=== PATIENT | male | born 1995 | race Caucasian/White ===

== ENCOUNTER 2017-02-17 08:52 | Emergency (ER) | payer OTHER ==
[~2017-02-17] VITALS: Ht 172.7 cm; Wt 73.4 kg
[~2017-02-17 08:52] MED LIST: ARIP400P IM; ASAC800T PO; CARA1SUS3 PO; PANT40TA3 PO
[2017-02-17 08:56] VITALS: BP 155/84; PULSE 64; RESP 18; TEMP 97.3; O2SAT 100
[2017-02-17] MEDS ORDERED: ASAC800T PO (10:11)
[2017-02-17] MEDS ORDERED: BACT800T5 PO (10:11)
--- NOTE | 2017-02-17 10:18 | PD ---
HPI Chief Complaint: Abdominal Pain Time Seen by Provider: 09:30 Travel History International Travel<30 days: No Contact w/Intl Traveler<30days: No Traveled to known affect area: No History of Present Illness HPI This patient complains of some bloating and burning in his abdomen. He has history of Crohn's disease. He doesn't follow up with anybody and doesn't take any medications except when his ER refills run out. He is out of medication now. Denies fever or bloody diarrhea. Severity is mild PFSH Past Medical History ADD: Yes ADHD: Yes Asthma: No Bipolar Disorder: Yes Anxiety: No Depression: No Cancer: No Cardiovascular Problems: No COPD: No Cerebrovascular Accident: No Diabetes: No Diminished Hearing: No Endocrine: No Gastrointestinal Disorders: Yes (crohns) GERD: No Genitourinary: No Hiatal Hernia: No Implanted Vascular Access Dvce: No Musculoskeletal: No Neurologic: Yes Psychiatric: Yes (bipolar, ADD, ADHD) Reproductive: No Respiratory: No Immunizations Current: Yes Migraines: Yes Seizures: No Sleep Apnea: No Thyroid Disease: No Ulcer: No Influenza Vaccination: Yes PNEUMOCCOCAL Vaccine (Year): 3 ?: Not Past Surgical History Abdominal Surgery: No AICD: No Arteriovenous Shunt: No Cardiac Surgery: No Ear Surgery: Yes (tubes placed in ears at 4years old ) Endocrine Surgery: No Eye Surgery: No Genitourinary Surgery: No Gynecologic Surgery: No Insulin Pump: No Joint Replacement: No Neurologic Surgery: No Oral Surgery: No Pacemaker: No Thoracic Surgery: No Tympanostomy Tube: Yes Other Surgery: Yes (TUBES IN EARS) Social History Alcohol Use: No (Denies) Tobacco Use: Yes (1PPD) Substance Use: Yes Allergies-Medications (Allergen,Severity, Reaction): Coded Allergies: acetaminophen (Unverified Allergy, Intermediate, Rash, 02/17/17) oxycodone (Unverified Allergy, Intermediate, Rash, 02/17/17) Reported Meds & Prescriptions Reported Meds & Active Scripts Active Bactrim DS (Sulfamethoxazole-Trimethoprim) 800-160 Mg Tab 1 Tab PO BID Asacol HD (Mesalamine) 800 Mg Tab 1,600 Mg PO TID Swallow whole. Take on an empty stomach. Review of Systems HENT: No: Headaches Cardiovascular: No: Chest Pain or Discomfort Respiratory: No: Cough Gastrointestinal: No: Vomiting Physical Exam Narrative GASTROINTESTINAL: Abdomen soft, non-tender, nondistended. Positive bowel sounds. No hepato-splenomegaly, or palpable masses. No guarding. SKIN: Focused skin assessment reveals no rash or ulcers. Skin is warm and dry. Palpation shows no induration or nodules. NECK: Symmetrical appearance, midline trachea. No mass or crepitus. Thyroid without enlargement, tenderness, or mass. Data Data Last Documented VS Vital Signs Date Time Temp Pulse Resp B/P (MAP) Pulse Ox O2 Delivery O2 Flow Rate FiO2 02/17/17 08:56 97.3 64 18 155/84 (107) 100 MDM Medical Decision Making Medical Screen Exam Complete: Yes Emergency Medical Condition: Yes Medical Record Reviewed: Yes Differential Diagnosis Colitis flare, gastroenteritis, ileus Narrative Course I have reviewed the patient's electronic medical record. Reviewed his most recent GI consultation They recommended mesalamine 16 mg 3 times a day and I have refilled that and gave him 1 refill That should give him 2 months of time to try for follow-up He belatedly notes a reddened area on his thumb that looks inflamed but not serious. I recommended warm compresses and wrote him some Bactrim DS Diagnosis Primary Impression: Colitis Additional Impression: Infected skin lesion Additional Instructions: The patient was advised to follow up with their physician and return if they worsen. Med/Other Pt SpecificInfo: Prescription(s) given Scripts Sulfamethoxazole-Trimethoprim (Bactrim DS) 800-160 Mg Tab 1 TAB PO BID for Infection, #14 TAB 0 Refills Prov: Josemanuel Jones MD 02/17/[address] (Asacol HD) 800 Mg Tab 1600 MG PO TID for Ulcerative colitis, #90 TAB 0 Refills Swallow whole. Take on an empty stomach. Prov: Josemanuel Jones MD 02/17/17 Disposition: 01 DISCHARGE HOME Condition: Stable Josemanuel Jones MD Feb 17, 2017 10:18
== END 2017-02-17 10:22 | disposition home or self-care (01) ==
LOC: PHED 08:52
DX: K52.9 Noninfective gastroenteritis and colitis, unspecified (principal); L08.9 Local infection of the skin and subcutaneous tissue, unspecified; F17.200 Nicotine dependence, unspecified, uncomplicated; Z86.59 Personal history of other mental and behavioral disorders; Z87.19 Personal history of other diseases of the digestive system; Z86.69 Personal history of other diseases of the nervous system and sense organs
CPT/HCPCS: 99283

== ENCOUNTER 2017-07-17 15:49 | Emergency (ER) | payer OTHER ==
[~2017-07-17] VITALS: Ht 172.7 cm; Wt 70.0 kg
[~2017-07-17 15:49] MED LIST changes: +BACT800T5 PO; -CARA1SUS3 PO; -PANT40TA3 PO
[2017-07-17 15:57] VITALS: BP 162/92; PULSE 100; RESP 18; TEMP 97.7; O2SAT 98
[2017-07-17] MEDS ORDERED: SODIUM CHLOR 0.9% 1000 ML INJ 1,000 ML IV SCH (16:36)
[2017-07-17] MEDS ORDERED: SODIUM CHLORIDE 0.9% FLUSH 10 ML FLUSH IV FLUSH PRN (16:45)
[2017-07-17] MEDS ORDERED: IOHEXOL 350 MG/ML 10 ML VIAL (for RAD DIAG) IVCONTRAST ONE (16:55)
--- NOTE | 2017-07-17 16:58 | PD ---
HPI Chief Complaint: GI Complaint Time Seen by Provider: 16:10 Travel History International Travel<30 days: No Contact w/Intl Traveler<30days: No Traveled to known affect area: No History of Present Illness HPI Patient is a 21-year-old male presents the emergency room complaints of lower abdominal pain with diarrhea. Patient reports that he has history of Crohn's disease, reports that for the past few days, he has been having increased lower abdominal pain. Patient reports concerns for possible Crohn's flareup. Patient also endorses that he has noticed bright red blood in his stools. Patient reports that he has had history of Crohn's disease for a while, he was seen in the emergency room a few months ago and was told that he would need to follow-up with a professor of art history, reports that he has not followed up with a professor of art history yet although he knows that this is a priority. Overall, patient denies any fever or chills, denies any nausea or vomiting, reports generalized weakness. Patient also requesting refill on his Asacol 1600mg which he takes TID as he has run out of his medication and does not have an appointment with GI yet. PFSH Past Medical History ADD: Yes ADHD: Yes Asthma: No Bipolar Disorder: Yes Anxiety: No Depression: No Cancer: No Cardiovascular Problems: No COPD: No Cerebrovascular Accident: No Diabetes: No Diminished Hearing: No Endocrine: No Gastrointestinal Disorders: Yes (crohns) GERD: No Genitourinary: No Hiatal Hernia: No Implanted Vascular Access Dvce: No Musculoskeletal: No Neurologic: Yes Psychiatric: Yes (bipolar, ADD, ADHD) Reproductive: No Respiratory: No Immunizations Current: Yes Migraines: Yes Seizures: No Sleep Apnea: No Thyroid Disease: No Ulcer: No Influenza Vaccination: Yes PNEUMOCCOCAL Vaccine (Year): 3 Past Surgical History Abdominal Surgery: No AICD: No Arteriovenous Shunt: No Cardiac Surgery: No Ear Surgery: Yes (tubes placed in ears at 4years old ) Endocrine Surgery: No Eye Surgery: No Genitourinary Surgery: No Gynecologic Surgery: No Insulin Pump: No Joint Replacement: No Neurologic Surgery: No Oral Surgery: No Pacemaker: No Thoracic Surgery: No Tympanostomy Tube: Yes Other Surgery: Yes (TUBES IN EARS) Social History Alcohol Use: No (Denies) Tobacco Use: Yes (1PPD) Substance Use: Yes Allergies-Medications (Allergen,Severity, Reaction): Coded Allergies: acetaminophen (Unverified Allergy, Intermediate, Rash, 07/17/17) oxycodone (Unverified Allergy, Intermediate, Rash, 07/17/17) Reported Meds & Prescriptions Reported Meds & Active Scripts Active Asacol HD (Mesalamine) 800 Mg Tab 1,600 Mg PO TID Swallow whole. Take on an empty stomach. Review of Systems General / Constitutional: No: Fever Eyes: No: Visual changes HENT: No: Headaches Cardiovascular: No: Chest Pain or Discomfort Respiratory: No: Shortness of Breath Gastrointestinal: Positive: Diarrhea, Abdominal Pain, Hematochezia, No: Nausea , Vomiting Genitourinary: No: Dysuria Musculoskeletal: No: Pain Skin: No Rash Neurologic: No: Weakness Psychiatric: No: Depression Endocrine: No: Polydipsia Hematologic/Lymphatic: No: Easy Bruising Physical Exam Narrative GENERAL: Moderate distress SKIN: Focused skin assessment warm/dry. HEAD: Atraumatic. Normocephalic. EYES: Pupils equal and round. No scleral icterus. No injection or drainage. ENT: No nasal bleeding or discharge. Mucous membranes pink and moist. NECK: Trachea midline. No JVD. CARDIOVASCULAR: Regular rate and rhythm. No murmur appreciated. RESPIRATORY: No accessory muscle use. Clear to auscultation. Breath sounds equal bilaterally. GASTROINTESTINAL: Abdomen soft, increased tenderness to the lower abdomen with no rebound or guarding on exam, nondistended. Hepatic and splenic margins not palpable. Positive bowel sounds MUSCULOSKELETAL: No obvious deformities. No clubbing. No cyanosis. No edema. NEUROLOGICAL: Awake and alert. No obvious cranial nerve deficits. Motor grossly within normal limits. Normal speech. PSYCHIATRIC: Appropriate mood and affect; insight and judgment normal. Data Data Last Documented VS Vital Signs Date Time Temp Pulse Resp B/P (MAP) Pulse Ox O2 Delivery O2 Flow Rate FiO2 07/17/17 15:57 97.7 100 18 162/92 (115) 98 Orders Orders Complete Blood Count With Diff (07/17/17 16:36) Comprehensive Metabolic Panel (07/17/17 16:36) Prothrombin Time / Inr (Pt) (07/17/17 16:36) Act Partial Throm Time (Ptt) (07/17/17 16:36) Urinalysis - C+S If Indicated (07/17/17 16:36) Ct Abd/Pel W Iv Contrast(Rout) (07/17/17 16:36) Iv Access Insert/Monitor (07/17/17 16:36) Oximetry (07/17/17 16:36) NPO (07/17/17 16:36) Sodium Chlor 0.9% 1000 Ml Inj (Ns 1000 M (07/17/17 16:36) Sodium Chloride 0.9% Flush (Ns Flush) (07/17/17 16:45) Iohexol 350 Inj (Omnipaque 350 Inj) (07/17/17 16:55) Potassium Chloride (Kcl) (07/17/17 17:45) Labs Laboratory Tests Test 07/17/17 16:10 White Blood Count 16.4 TH/MM3 Red Blood Count 4.52 MIL/MM3 Hemoglobin 13.0 GM/DL Hematocrit 38.6 % Mean Corpuscular Volume 85.5 FL Mean Corpuscular Hemoglobin 28.8 PG Mean Corpuscular Hemoglobin Concent 33.6 % Red Cell Distribution Width 12.1 % Platelet Count 370 TH/MM3 Mean Platelet Volume 8.4 FL Neutrophils (%) (Auto) 83.8 % Lymphocytes (%) (Auto) 7.6 % Monocytes (%) (Auto) 4.2 % Eosinophils (%) (Auto) 3.9 % Basophils (%) (Auto) 0.5 % Neutrophils # (Auto) 13.8 TH/MM3 Lymphocytes # (Auto) 1.2 TH/MM3 Monocytes # (Auto) 0.7 TH/MM3 Eosinophils # (Auto) 0.6 TH/MM3 Basophils # (Auto) 0.1 TH/MM3 CBC Comment DIFF FINAL Differential Comment Prothrombin Time 10.3 SEC Prothromb Time International Ratio 1.0 RATIO Activated Partial Thromboplast Time 28.3 SEC Urine Color YELLOW Urine Turbidity CLEAR Urine pH 6.0 Urine Specific [place] LESS/EQUAL 1.005 Urine Protein NEG mg/dL Urine Glucose (UA) NEG mg/dL Urine Ketones NEG mg/dL Urine Occult Blood TRACE Urine Nitrite NEG Urine Bilirubin NEG Urine Urobilinogen 0.2 MG/DL Urine Leukocyte Esterase NEG Urine WBC 0-2 /hpf Urine Squamous Epithelial Cells 0-5 /hpf Microscopic Urinalysis Comment CULT NOT INDICATED Blood Urea Nitrogen 4 MG/DL Creatinine 0.63 MG/DL Random Glucose 121 MG/DL Total Protein 7.3 GM/DL Albumin 3.2 GM/DL Calcium Level 9.0 MG/DL Alkaline Phosphatase 75 U/L Aspartate Amino Transf (AST/SGOT) 11 U/L Alanine Aminotransferase (ALT/SGPT) 13 U/L Total Bilirubin 0.4 MG/DL Sodium Level 135 MEQ/L Potassium Level 3.2 MEQ/L Chloride Level 102 MEQ/L Carbon Dioxide Level 24.9 MEQ/L Anion Gap 8 MEQ/L Estimat Glomerular Filtration Rate 164 ML/MIN MDM Medical Decision Making Medical Screen Exam Complete: Yes Emergency Medical Condition: Yes Medical Record Reviewed: Yes Interpretation(s) Vital Signs Date Time Temp Pulse Resp B/P (MAP) Pulse Ox O2 Delivery O2 Flow Rate FiO2 07/17/17 15:57 97.7 100 18 162/92 (115) 98 Differential Diagnosis Crohn's exacerbation, electrolyte abnormality, colitis Narrative Course 21-year-old male with history of Crohn's disease, presents to emergency room with complaints of Crohn's exacerbation. During the course of the patients emergency department visit, the patients history, examination, and differential diagnosis were reviewed with the patient. The patient was placed on a cafeteria monitor with oximetry and frequent blood pressure monitoring. The patient had an IV access obtained and blood work sent for analysis. The patient was initially provided IV fluids. The patients laboratory studies were reviewed and remarkable for: Laboratory Tests Test 07/17/17 16:10 White Blood Count 16.4 TH/MM3 (4.0-11.0) Red Blood Count 4.52 MIL/MM3 (4.50-5.90) Hemoglobin 13.0 GM/DL (13.0-17.0) Hematocrit 38.6 % (39.0-51.0) Mean Corpuscular Volume 85.5 FL (80.0-100.0) Mean Corpuscular Hemoglobin 28.8 PG (27.0-34.0) Mean Corpuscular Hemoglobin Concent 33.6 % (32.0-36.0) Red Cell Distribution Width 12.1 % (11.6-17.2) Platelet Count 370 TH/MM3 (150-450) Mean Platelet Volume 8.4 FL (7.0-11.0) Neutrophils (%) (Auto) 83.8 % (16.0-70.0) Lymphocytes (%) (Auto) 7.6 % (9.0-44.0) Monocytes (%) (Auto) 4.2 % (0.0-8.0) Eosinophils (%) (Auto) 3.9 % (0.0-4.0) Basophils (%) (Auto) 0.5 % (0.0-2.0) Neutrophils # (Auto) 13.8 TH/MM3 (1.8-7.7) Lymphocytes # (Auto) 1.2 TH/MM3 (1.0-4.8) Monocytes # (Auto) 0.7 TH/MM3 (0-0.9) Eosinophils # (Auto) 0.6 TH/MM3 (0-0.4) Basophils # (Auto) 0.1 TH/MM3 (0-0.2) CBC Comment DIFF FINAL Differential Comment Prothrombin Time 10.3 SEC (9.8-11.6) Prothromb Time International Ratio 1.0 RATIO Activated Partial Thromboplast Time 28.3 SEC (24.3-30.1) Urine Color YELLOW (YELLW/STRAW) Urine Turbidity CLEAR (CLEAR) Urine pH 6.0 (5.0-8.5) Urine Specific [place] LESS/EQUAL 1.005 Urine Protein NEG mg/dL (NEG-TRACE) Urine Glucose (UA) NEG mg/dL (NEG) Urine Ketones NEG mg/dL (NEG) Urine Occult Blood TRACE (NEG) Urine Nitrite NEG (NEG) Urine Bilirubin NEG (NEG) Urine Urobilinogen 0.2 MG/DL (LESS THAN Urine Leukocyte Esterase NEG (NEG) Urine WBC 0-2 /hpf (0-5) Urine Squamous Epithelial Cells 0-5 /hpf (0-5) Microscopic Urinalysis Comment CULT NOT INDICATED Blood Urea Nitrogen 4 MG/DL (7-18) Creatinine 0.63 MG/DL (0.60-1.30) Random Glucose 121 MG/DL (74-106) Total Protein 7.3 GM/DL (6.4-8.2) Albumin 3.2 GM/DL (3.4-5.0) Calcium Level 9.0 MG/DL (8.5-10.1) Aspartate Amino Transf (AST/SGOT) 11 U/L (15-39) Alanine Aminotransferase (ALT/SGPT) 13 U/L (9-52) Total Bilirubin 0.4 MG/DL (0.2-1.0) Sodium Level 135 MEQ/L (136-145) Potassium Level 3.2 MEQ/L (3.5-5.1) Chloride Level 102 MEQ/L (98-107) Carbon Dioxide Level 24.9 MEQ/L (21.0-32.0) Anion Gap 8 MEQ/L (5-15) Estimat Glomerular Filtration Rate 164 ML/MIN (>89) Radiology studies were reviewed and remarkable for: Last Impressions Abdomen/Pelvis CT 07/17/17 1636 Signed Impressions: Service Date/Time: Monday, July 17, 2017 16:48 - CONCLUSION: 1. No acute findings. 2. A few subcentimeter nonspecific retroperitoneal and mesenteric lymph nodes unchanged from prior. Luis F Srinivasan MD Patient reevaluated, patient feeling much better at this time. Reviewed CT results with patient including all incidental findings. Patient with most likely Crohn's exacerbation, will restart him on Asacol and will have him follow up with a professor of art history. Signs and symptoms of when to return to the ER was reviewed with patient in detail. Diagnosis Primary Impression: Crohns disease Qualified Codes: K50.919 - Crohn's disease, unspecified, with unspecified complications Referrals: Rigoberto Toussaint MD Patient Instructions: General Instructions Additional Instructions: Please provide patient with a copy of their lab work and studies at discharge* * Please follow up with your primary care doctor in 2-3 days Return to the ER if symptoms worsen or progress Return to the ER as needed Please follow-up with your professor of art history as soon as possible Med/Other Pt SpecificInfo: Prescription(s) given Scripts Omaralamine (Asacol HD) 800 Mg Tab 1600 MG PO TID for Ulcerative colitis, #90 TAB 0 Refills Swallow whole. Take on an empty stomach. Prov: Tricia Campos DO 07/17/17 Disposition: 01 DISCHARGE HOME Condition: Stable Tricia Campos DO Jul 17, 2017 16:58
[2017-07-17 17:15] LABS: AUTOMATED NEUTROPHIL # 13.8 TH/MM3 (1.8-7.7); BASOPHIL # 0.1 TH/MM3 (0-0.2); BASOPHIL % 0.5 % (0.0-2.0); BILIRUBIN, URINE NEG (NEG); BLOOD, URINE TRACE (NEG); EOSINOPHIL # 0.6 TH/MM3 (0-0.4); EOSINOPHIL % 3.9 % (0.0-4.0); GLUCOSE,URINE NEG (NEG); HEMATOCRIT 38.6 % (39.0-51.0); KETONE, URINE NEG (NEG); LYMPH % 7.6 % (9.0-44.0); LYMPHOCYTE # 1.2 TH/MM3 (1.0-4.8); MEAN CELL VOLUME 85.5 FL (80.0-100.0); MEAN CORPUSCULAR HEMOGLOBIN 28.8 PG (27.0-34.0); MEAN CORPUSCULAR HGB CONC 33.6 % (32.0-36.0); MEAN PLATELET VOLUME 8.4 FL (7.0-11.0); MONO % 4.2 % (0.0-8.0); MONOCYTE # 0.7 TH/MM3 (0-0.9); NEUT % 83.8 % (16.0-70.0); NITRITE,URINE NEG (NEG); PLATELET COUNT 370 TH/MM3 (150-450); RED BLOOD COUNT 4.52 MIL/MM3 (4.50-5.90); RED CELL DISTRIBUTION WIDTH 12.1 % (11.6-17.2); URINE COLOR YELLOW (YELLW/STRAW); URINE LEUKOCYTE ESTERASE NEG (NEG); WHITE BLOOD COUNT 16.4 TH/MM3 (4.0-11.0)
[2017-07-17 17:25] LABS: CHLORIDE 102 MEQ/L (98-107); SODIUM (NA) 135 MEQ/L (136-145)
--- NOTE | 2017-07-17 17:27 | RADRPT ---
EXAM DATE/TIME: 07/17/2017 16:48 [facility] COMPARISON: CT ABDOMEN & PELVIS W CONTRAST, November 01, 2016, 16:21. INDICATIONS : Lower abdominal pain with nausea, vomiting, and diarrhea. IV CONTRAST: 100 cc Omnipaque 350 (iohexol) IV ORAL CONTRAST: No oral contrast ingested. RADIATION DOSE: 6.75 CTDIvol (mGy) MEDICAL HISTORY : Crohn's disease. SURGICAL HISTORY : None. ENCOUNTER: Initial ACUITY: 2 weeks PAIN SCALE: 7/10 LOCATION: Bilateral lower quadrant abdomen TECHNIQUE: Volumetric scanning of the abdomen and pelvis was performed. Using automated exposure control and ad justment of the mA and/or kV according to patient size, radiation dose was kept as low as reasonably achievable to obtain optimal diagnostic quality images. DICOM format image data is available electro nically for review and comparison. FINDINGS: LOWER LUNGS: The visualized lower lungs are clear. LIVER: Homogeneous density without lesion. There is no dilation of the biliary tree. No calcified gall[place] es. SPLEEN: Normal size without lesion. PANCREAS: Within normal limits. KIDNEYS: Normal in size and shape. There is no mass, stone or hydronephrosis. ADRENAL GLANDS: Within normal limits. VASCULAR: There is no aortic aneurysm. BOWEL/MESENTERY: The stomach, small bowel, and colon demonstrate no acute abnormality. Small and large bowel is nondi stended. There is a uniform appearance of the colonic wall throughout without definite areas of wall thickening or pericolonic induration. There is no free intraperitoneal air or fluid. ABDOMINAL WALL: Within normal limits. RETROPERITONEUM: No acute findings. There is mild prominence of several periaortic lymph nodes, a few mesenteric lymp h nodes, all measuring 8 mm or less, unchanged in appearance when compared to prior CT in October 2016. BLADDER: No wall thickening or mass. REPRODUCTIVE: Within normal limits. INGUINAL: There is no lymphadenopathy or hernia. MUSCULOSKELETAL: Within normal limits for patient age. Considerable note of partial sacralization of L5 bilaterally. CONCLUSION: 1. No acute findings. 2. A few subcentimeter nonspecific retroperitoneal and mesenteric lymph nodes unchanged from prior. Luis F Srinivasan MD on July 17, 2017 at 17:17 Board Certified Radiologist. This report was verified electronically.
[2017-07-17 17:28] LABS: ALBUMIN 3.2 GM/DL (3.4-5.0); BICARBONATE 24.9 MEQ/L (21.0-32.0); BLOOD UREA NITROGEN 4 MG/DL (7-18); GLUCOSE,RANDOM 121 MG/DL (74-106)
[2017-07-17 17:30] LABS: PROTHROMBIN TIME - PATIENT 10.3 SEC (9.8-11.6)
[2017-07-17 17:31] LABS: ALT (GPT) 13 U/L (9-52); AST (GOT) 11 U/L (15-39); SQUAMOUS EPITHELIAL CELL URINE 0-5 /hpf (0-5); WBC, URINE 0-2 /hpf (0-5)
[2017-07-17 17:32] LABS: CREATININE 0.63 MG/DL (0.60-1.30); GLOMERULAR FILTRATION RATE 164 ML/MIN (>89)
[2017-07-17 17:33] LABS: TOTAL BILIRUBIN ADULT 0.4 MG/DL (0.2-1.0); TOTAL PROTEIN 7.3 GM/DL (6.4-8.2)
[2017-07-17 17:34] LABS: ALKALINE PHOSPHATASE 75 U/L (45-117)
[2017-07-17] MEDS ORDERED: ASAC800T PO (17:35)
[2017-07-17] MEDS ORDERED: POTASSIUM CHLORIDE 10 MEQ CONTROLLED RELEASE TAB PO ONE (17:45)
== END 2017-07-17 18:24 | disposition home or self-care (01) ==
LOC: PHED 15:49
DX: K50.90 Crohn's disease, unspecified, without complications (principal); F90.9 Attention-deficit hyperactivity disorder, unspecified type; F31.9 Bipolar disorder, unspecified; Z88.6 Allergy status to analgesic agent; Z88.5 Allergy status to narcotic agent
CPT/HCPCS: 74177; 80053; 81001; 85025; 85610; 85730; 96360; 99284; J7030; Q9967

== ENCOUNTER 2017-08-09 14:08 | Observation (INO) | payer OTHER ==
[~2017-08-09] VITALS: Ht 172.7 cm; Wt 60.0 kg
[~2017-08-09 14:08] MED LIST changes: -BACT800T5 PO
[2017-08-09 14:11] VITALS: BP 127/89; PULSE 110; RESP 20; TEMP 97.2; O2SAT 100
[2017-08-09] MEDS ORDERED: SODIUM CHLOR 0.9% 1000 ML INJ 1,000 ML IV SCH ×2 (14:37→18:06)
[2017-08-09] MEDS ORDERED: MORPHINE SULFATE 4 MG/ML INJ IV PUSH ONE ×2 (14:45→16:15)
[2017-08-09] MEDS ORDERED: SODIUM CHLORIDE 0.9% FLUSH 10 ML FLUSH IV FLUSH PRN ×2 (14:45→17:45)
[2017-08-09] MEDS ORDERED: ONDANSETRON HCL 4 MG/2 ML VIAL IVP ONE (14:45)
[2017-08-09] MEDS ORDERED: PRED10 PO (15:06)
[2017-08-09 15:23] LABS: AUTOMATED NEUTROPHIL # 11.4 TH/MM3 (1.8-7.7); BASOPHIL # 0.2 TH/MM3 (0-0.2); EOSINOPHIL # 0.3 TH/MM3 (0-0.4); EOSINOPHIL % 1.7 % (0.0-4.0); HEMATOCRIT 45.7 % (39.0-51.0); HEMOGLOBIN 15.9 GM/DL (13.0-17.0); LYMPH % 9.8 % (9.0-44.0); LYMPHOCYTE # 1.5 TH/MM3 (1.0-4.8); MEAN CELL VOLUME 81.8 FL (80.0-100.0); MEAN CORPUSCULAR HEMOGLOBIN 28.4 PG (27.0-34.0); MEAN CORPUSCULAR HGB CONC 34.7 % (32.0-36.0); MEAN PLATELET VOLUME 7.6 FL (7.0-11.0); MONO % 13.3 % (0.0-8.0); MONOCYTE # 2.1 TH/MM3 (0-0.9); NEUT % 74.2 % (16.0-70.0); PLATELET COUNT 582 TH/MM3 (150-450); RED BLOOD COUNT 5.58 MIL/MM3 (4.50-5.90); WHITE BLOOD COUNT 15.5 TH/MM3 (4.0-11.0)
[2017-08-09 15:31] LABS: CHLORIDE 96 MEQ/L (98-107); SODIUM (NA) 130 MEQ/L (136-145)
[2017-08-09 15:34] LABS: ALBUMIN 3.3 GM/DL (3.4-5.0); CALCIUM 9.7 MG/DL (8.5-10.1)
[2017-08-09 15:35] LABS: BICARBONATE 26.5 MEQ/L (21.0-32.0); BLOOD UREA NITROGEN 7 MG/DL (7-18); GLUCOSE,RANDOM 88 MG/DL (74-106)
[2017-08-09 15:36] VITALS: BP 108/84; PULSE 92; RESP 18; O2SAT 97
[2017-08-09 15:36] LABS: INTERNATIONAL NORMALIZED RATIO 1.1 RATIO; PROTHROMBIN TIME - PATIENT 11.3 SEC (9.8-11.6)
[2017-08-09 15:37] VITALS: RESP 18; O2SAT 97
[2017-08-09 15:38] LABS: ALT (GPT) 14 U/L (9-52); AST (GOT) 4 U/L (15-39); CREATININE 0.67 MG/DL (0.60-1.30); GLOMERULAR FILTRATION RATE 153 ML/MIN (>89)
[2017-08-09 15:39] LABS: TOTAL BILIRUBIN ADULT 0.6 MG/DL (0.2-1.0); TOTAL PROTEIN 8.8 GM/DL (6.4-8.2)
[2017-08-09 15:40] LABS: ALKALINE PHOSPHATASE 87 U/L (45-117)
[2017-08-09] MEDS ORDERED: SODIUM CHLOR 0.9% 1000 ML INJ 1,000 ML IV ONE (15:45)
--- NOTE | 2017-08-09 15:52 | PD ---
HPI Chief Complaint: GI Complaint Time Seen by Provider: 14:29 Travel History International Travel<30 days: No Contact w/Intl Traveler<30days: No Traveled to known affect area: No History of Present Illness HPI Patient is a 21 year old male, with history of Crohn's Disease, who comes in complaining of abdominal pain and inability to eat. He says that he has not been able to urinate for the past 4 days because he is unable to eat or drink anything. He says whenever he eats, he has a lot of pain. He also reports nausea and vomiting. He says the pain is all over his abdomen. He was here early July and was referred to GI. He says he want to the linseed cake trimmer and had a colonoscopy done. He says it showed diffuse inflammation of his colon and he was put on Prednisone. He says he has been taking this as directed. He says he tried to call the linseed cake trimmer to make another appointment, but has not been able to get in contact with the office. He has not taken anything for pain. Severity is moderate. PFSH Past Medical History ADD: Yes ADHD: Yes Asthma: No Bipolar Disorder: Yes Anxiety: No Depression: No Cancer: No Cardiovascular Problems: No COPD: No Cerebrovascular Accident: No Diabetes: No Diminished Hearing: No Endocrine: No Gastrointestinal Disorders: Yes (crohns) GERD: No Genitourinary: No Hiatal Hernia: No Implanted Vascular Access Dvce: No Musculoskeletal: No Neurologic: Yes Psychiatric: Yes (bipolar, ADD, ADHD) Reproductive: No Respiratory: No Immunizations Current: Yes Migraines: Yes Seizures: No Sleep Apnea: No Thyroid Disease: No Ulcer: No Tetanus Vaccination: < 5 Years Influenza Vaccination: Yes PNEUMOCCOCAL Vaccine (Year): 3 ?: Not Past Surgical History Abdominal Surgery: No AICD: No Arteriovenous Shunt: No Cardiac Surgery: No Ear Surgery: Yes (tubes placed in ears at 4years old ) Endocrine Surgery: No Eye Surgery: No Genitourinary Surgery: No Gynecologic Surgery: No Insulin Pump: No Joint Replacement: No Neurologic Surgery: No Oral Surgery: No Pacemaker: No Thoracic Surgery: No Tympanostomy Tube: Yes Other Surgery: Yes (TUBES IN EARS) Social History Alcohol Use: No (Denies) Tobacco Use: Yes (1/2 PPD) Substance Use: Yes Allergies-Medications (Allergen,Severity, Reaction): Coded Allergies: acetaminophen (Unverified Allergy, Intermediate, Rash, 08/09/17) oxycodone (Unverified Allergy, Intermediate, Rash, 08/09/17) Reported Meds & Prescriptions Reported Meds & Active Scripts Active Reported Prednisone 10 Mg Tab 10 Mg PO DAILY Review of Systems Except as stated in HPI: all other systems reviewed are Neg General / Constitutional: No: Fever, Chills HENT: No: Headaches, Lightheadedness Cardiovascular: No: Chest Pain or Discomfort Respiratory: No: Shortness of Breath Gastrointestinal: Positive: Nausea, Vomiting, Abdominal Pain Genitourinary: Positive: Decreased Urinary Output Skin: No Rash, No Change in Pigmentation Neurologic: No: Weakness, Dizziness Physical Exam Narrative GENERAL: Awake and alert, in no acute distress. SKIN: Focused skin assessment warm/dry. HEAD: Atraumatic. Normocephalic. EYES: Pupils equal and round. No scleral icterus. No injection or drainage. ENT: No nasal bleeding or discharge. Mucous membranes pink and moist. NECK: Trachea midline. No JVD. CARDIOVASCULAR: Regular rate and rhythm. No murmur appreciated. RESPIRATORY: No accessory muscle use. Clear to auscultation. Breath sounds equal bilaterally. GASTROINTESTINAL: Abdomen soft, nondistended. Diffuse tenderness to palpation, voluntary guarding, no rebound. MUSCULOSKELETAL: No obvious deformities. No clubbing. No cyanosis. No edema. NEUROLOGICAL: Awake and alert. No obvious cranial nerve deficits. Motor grossly within normal limits. Normal speech. PSYCHIATRIC: Appropriate mood and affect; insight and judgment normal. Data Data Last Documented VS Vital Signs Date Time Temp Pulse Resp B/P (MAP) Pulse Ox O2 Delivery O2 Flow Rate FiO2 08/09/17 15:38 18 08/09/17 15:37 97 Room Air 08/09/17 15:36 92 08/09/17 14:11 97.2 Orders Orders Complete Blood Count With Diff (08/09/17 14:37) Comprehensive Metabolic Panel (08/09/17 14:37) Lipase (08/09/17 14:37) Lactic Acid (08/09/17 14:37) Prothrombin Time / Inr (Pt) (08/09/17 14:37) Act Partial Throm Time (Ptt) (08/09/17 14:37) Urinalysis - C+S If Indicated (08/09/17 14:37) Ct Abd/Pel W Iv Contrast(Rout) (08/09/17 14:37) Iv Access Insert/Monitor (08/09/17 14:37) Ecg Monitoring (08/09/17 14:37) Oximetry (08/09/17 14:37) Morphine Inj (Morphine Inj) (08/09/17 14:45) Ondansetron Inj (Zofran Inj) (08/09/17 14:45) Sodium Chlor 0.9% 1000 Ml Inj (Ns 1000 M (08/09/17 14:37) Sodium Chloride 0.9% Flush (Ns Flush) (08/09/17 14:45) Sodium Chlor 0.9% 1000 Ml Inj (Ns 1000 M (08/09/17 15:45) Iohexol 350 Inj (Omnipaque 350 Inj) (08/09/17 16:07) Morphine Inj (Morphine Inj) (08/09/17 16:15) Admit Order (Ed Use Only) (08/09/17 ) Labs Laboratory Tests Test 08/09/17 15:10 08/09/17 17:30 White Blood Count 15.5 TH/MM3 Red Blood Count 5.58 MIL/MM3 Hemoglobin 15.9 GM/DL Hematocrit 45.7 % Mean Corpuscular Volume 81.8 FL Mean Corpuscular Hemoglobin 28.4 PG Mean Corpuscular Hemoglobin Concent 34.7 % Red Cell Distribution Width 13.0 % Platelet Count 582 TH/MM3 Mean Platelet Volume 7.6 FL Neutrophils (%) (Auto) 74.2 % Lymphocytes (%) (Auto) 9.8 % Monocytes (%) (Auto) 13.3 % Eosinophils (%) (Auto) 1.7 % Basophils (%) (Auto) 1.0 % Neutrophils # (Auto) 11.4 TH/MM3 Lymphocytes # (Auto) 1.5 TH/MM3 Monocytes # (Auto) 2.1 TH/MM3 Eosinophils # (Auto) 0.3 TH/MM3 Basophils # (Auto) 0.2 TH/MM3 CBC Comment DIFF FINAL Differential Comment Prothrombin Time 11.3 SEC Prothromb Time International Ratio 1.1 RATIO Activated Partial Thromboplast Time 29.6 SEC Blood Urea Nitrogen 7 MG/DL Creatinine 0.67 MG/DL Random Glucose 88 MG/DL Total Protein 8.8 GM/DL Albumin 3.3 GM/DL Calcium Level 9.7 MG/DL Alkaline Phosphatase 87 U/L Aspartate Amino Transf (AST/SGOT) 4 U/L Alanine Aminotransferase (ALT/SGPT) 14 U/L Total Bilirubin 0.6 MG/DL Sodium Level 130 MEQ/L Potassium Level 3.4 MEQ/L Chloride Level 96 MEQ/L Carbon Dioxide Level 26.5 MEQ/L Anion Gap 8 MEQ/L Estimat Glomerular Filtration Rate 153 ML/MIN Lactic Acid Level 1.1 mmol/L Lipase 66 U/L Urine Color YELLOW Urine Turbidity CLEAR Urine pH 6.0 Urine Specific [place] LESS/EQUAL 1.005 Urine Protein NEG mg/dL Urine Glucose (UA) 100 mg/dL Urine Ketones 40 mg/dL Urine Occult Blood TRACE Urine Nitrite NEG Urine Bilirubin NEG Urine Urobilinogen 0.2 MG/DL Urine Leukocyte Esterase NEG Urine WBC 0-2 /hpf Urine Squamous Epithelial Cells 0-5 /hpf Microscopic Urinalysis Comment CULT NOT INDICATED MDM Medical Decision Making Medical Screen Exam Complete: Yes Emergency Medical Condition: Yes Medical Record Reviewed: Yes Differential Diagnosis Dehydration versus Crohn's flare versus colitis versus electrolyte abnormality Narrative Course Patient is a 21-year-old male who comes in complaining of abdominal pain. Exam shows diffuse tenderness. IV established, labs sent. Labs show no acute abnormalities. CT abdomen pelvis performed shows no acute abnormalities. Last 24 hours Impressions Abdomen/Pelvis CT 08/09/17 1437 Signed Impressions: Service Date/Time: Wednesday, August 09, 2017 15:56 - CONCLUSION: 1. A few scattered diverticula in the descending colon without diverticulitis. 2. Borderline lymph nodes clustered in the right lower abdominal quadrant are most characteristic of the benign Peyers patches, normal aggregate of lymph nodes adjacent to the terminal ileum found predominately in younger individuals. 3. Otherwise negative. No acute intraperitoneal or pelvic process to explain current clinical symptoms. Dedrick Wade MD Patient given pain medicine and IV fluids. He says he is still having a lot of pain and is unable to drink anything. He will be placed in observation for further management. Diagnosis Primary Impression: Intractable vomiting Qualified Codes: R11.2 - Nausea with vomiting, unspecified Additional Impression: Intractable abdominal pain Admitting Information Admitting Physician Requests: Observation Luz Maradiaga MD Aug 09, 2017 15:52
[2017-08-09] MEDS ORDERED: IOHEXOL 350 MG/ML 10 ML VIAL (for RAD DIAG) IVCONTRAST ONE (16:07)
--- NOTE | 2017-08-09 16:16 | RADRPT ---
EXAM DATE/TIME: 08/09/2017 15:56 [facility] COMPARISON: CT ABDOMEN & PELVIS W CONTRAST, July 17, 2017, 16:48. INDICATIONS : Diffuse abdominal pain. Blood in stool. IV CONTRAST: 75 cc Omnipaque 350 (iohexol) IV ORAL CONTRAST: No oral contrast ingested. RADIATION DOSE: 4.65 CTDIvol (mGy) MEDICAL HISTORY : Crohn's disease. SURGICAL HISTORY : None. ENCOUNTER: Initial ACUITY: 4 - 6 days PAIN SCALE: 9/10 LOCATION: Abdomen. TECHNIQUE: Volumetric scanning of the abdomen and pelvis was performed. Using automated exposure control and ad justment of the mA and/or kV according to patient size, radiation dose was kept as low as reasonably achievable to obtain optimal diagnostic quality images. DICOM format image data is available electro nically for review and comparison. FINDINGS: LOWER LUNGS: The visualized lower lungs are clear. LIVER: Focal area of diminished attenuation in the falciform ligament probably represents focal fatty infilt ration. Otherwise, homogeneous. There is no dilation of the biliary tree. No calcified gallstones. SPLEEN: Normal size without lesion. PANCREAS: Within normal limits. KIDNEYS: Normal in size and shape. There is no mass, stone or hydronephrosis. ADRENAL GLANDS: Within normal limits. VASCULAR: There is no aortic aneurysm. BOWEL/MESENTERY: The stomach, small bowel, and colon demonstrate no acute abnormality. There is no free intraperitone al air or fluid. There are few borderline prominent lymph nodes in the right lower pelvic quadrant ch aracteristic of the normal Peyers patches adjacent to the terminal ileum. There appear to be a few sc attered diverticula in the descending colon without diverticulitis. ABDOMINAL WALL: Within normal limits. RETROPERITONEUM: There is no lymphadenopathy. BLADDER: No wall thickening or mass. REPRODUCTIVE: Within normal limits. INGUINAL: There is no lymphadenopathy or hernia. MUSCULOSKELETAL: Within normal limits for patient age. CONCLUSION: 1. A few scattered diverticula in the descending colon without diverticulitis. 2. Borderline lymph nodes clustered in the right lower abdominal quadrant are most characteristic of the benign Peyers patches, normal aggregate of lymph nodes adjacent to the terminal ileum found predo minately in younger individuals. 3. Otherwise negative. No acute intraperitoneal or pelvic process to explain current clinical symptom marychuy Wade MD on August 09, 2017 at 16:07 Board Certified Radiologist. This report was verified electronically.
[2017-08-09 17:34] LABS: BILIRUBIN, URINE NEG (NEG); BLOOD, URINE TRACE (NEG); GLUCOSE,URINE 100 mg/dL (NEG); KETONE, URINE 40 mg/dL (NEG); NITRITE,URINE NEG (NEG); URINE COLOR YELLOW (YELLW/STRAW); URINE LEUKOCYTE ESTERASE NEG (NEG)
[2017-08-09] MEDS ORDERED: NS + KCL 20 MEQ INJ 1,000 ML IV SCH (17:40)
[2017-08-09] MEDS ORDERED: DOCUSATE SODIUM 100 MG CAP PO PRN (17:45)
[2017-08-09] MEDS ORDERED: IBUPROFEN 400 MG TAB PO PRN (17:45)
[2017-08-09] MEDS ORDERED: CALCIUM CARBONATE 500 MG CHEWABLE TAB CHEW PRN (17:45)
[2017-08-09] MEDS ORDERED: KETOROLAC TROMETHAMINE 60 MG/2 ML (IM) VIAL IM PRN (17:45)
[2017-08-09] MEDS ORDERED: PROMETHAZINE INJ 25 MG/ML VIAL IM PRN (17:45)
[2017-08-09] MEDS ORDERED: MAGNESIUM HYDROXIDE SUSP 30 ML CUP PO PRN (17:45)
[2017-08-09] MEDS ORDERED: ONDANSETRON HCL 4 MG/2 ML VIAL IV PUSH PRN (17:45)
[2017-08-09] MEDS ORDERED: ONDANSETRON HCL 4 MG/2 ML VIAL IVP PRN (18:15)
[2017-08-09] MEDS ORDERED: NALOXONE HCL 0.4 MG/ML AMP IV PUSH PRN (18:15)
[2017-08-09] MEDS ORDERED: TEMAZEPAM 15 MG CAP PO PRN (18:15)
[2017-08-09 18:42] VITALS: BP 132/76
[2017-08-09 18:50] LABS: SQUAMOUS EPITHELIAL CELL URINE 0-5 /hpf (0-5); WBC, URINE 0-2 /hpf (0-5)
[2017-08-09] MEDS: SODIUM CHLORIDE 0.9% FLUSH 10 ML FLUSH IV FLUSH SCH (19:54)
[2017-08-09 20:00] VITALS: BP 141/92; PULSE 82; RESP 20; TEMP 97.3; O2SAT 99
[2017-08-09] MEDS: methylPREDNISolone SOD SUCC 40 MG/1 ML VIAL IV PUSH SCH (20:11)
[2017-08-09] MEDS: NS + KCL 20 MEQ INJ 1,000 ML IV SCH (22:00)
[2017-08-10] VITALS (10 sets, daily range): BP systolic 133–169; BP diastolic 70–98; PULSE 57–72; RESP 16–20; TEMP 96.4–98.7; O2SAT 99–100
--- NOTE | 2017-08-10 00:15 | MH ---
cc: Nataliia Jcakson MD DATE OF ADMISSION: 08/09/2017 ADMITTING DIAGNOSIS: Intractable abdominal pain and vomiting. HISTORY OF PRESENT ILLNESS: History is obtained from the patient as well as his father and stepmother, who are in the room. The patient is a 21-year-old gentleman who presents to the emergency room with vomiting and abdominal pain which has been persistent and worsening over the last several days. The patient has a history of abdominal pain and diarrhea for which he started treatment last year. Apparently, he had been starting health care and actually had a colonoscopy last year which showed ulcerations involving the entire colon. At that time, he was discharged on mesalamine, pantoprazole and prednisone, but apparently the patient lost insurance and was not able to continue with treatment. The patient then again returned to the emergency room this year in July with similar complaints of diarrhea and abdominal pain and was discharged on mesalamine and instructed to follow up with GI. He did follow up with GI and, on the of this month, apparently had a colonoscopy that was suggestive of Crohn disease. The patient was instructed to start prednisone 40 mg a day on a taper. The patient states that he understood that it was a 10 mg pill 4 times a day, which is how he was taking it. He states his abdominal pain continued, and continued to worsen, and he finally came to the emergency room. He says the pain is intense. He is not able to hold any food down. He has diarrhea and he has emesis. PAST MEDICAL HISTORY: Significant for ADHD; he carries a diagnosis of ADHD at one point as well as bipolar and the Crohn disease. PAST SURGICAL HISTORY: Tubes placed in his ears when he was 4 years old. ALLERGIES: HE IS ALLERGIC TO ACETAMINOPHEN AND OXYCODONE; APPARENTLY THEY GIVE HIM RASHES. MEDICATIONS: The only thing that he was taking when he came to the emergency room was the prednisone. HABITS: He states that he is not drinking secondary to the Crohn's and stomach pain. His stepmother says that he also used to consume alcohol until this illness. 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 The patient states he never used anything IV. He does smoke cigarettes, half a pack a day. Social: He is currently living with a friend, who helps take care of him. He lost his jobs this week because he was spending so much time in the restroom with the emesis and the diarrhea. Apparently, he worked at a [employer]. He tells me he was planning to start school as well. FAMILY HISTORY: His biological father has Crohn disease. REVIEW OF SYSTEMS: He denies fever, chills, cough. It sounds like he gets palpitations when he has the intense pain. He says he has had approximately 70-pound weight loss in the last year. He describes the abdominal pain as a shooting knife into his abdomen. He denies any reflux or heartburn. He tells me that he was not really urinating when he came into the emergency room until they gave him 2 bags of IV fluids. He then tells me that he thinks that a month ago he might have passed a kidney stone. LABORATORY DATA: Lab work when he came in showed a white count of 15.5 with a hemoglobin of 15.9, hematocrit 45.7, platelet count of 582, neutrophils 74.2. Sodium was 130, potassium was 3.4, BUN was 7, creatinine 0.67, random glucose 88, total protein 8.8 with an albumin of 3.3 and lipase of 66. His lactic acid was 1.1. His urine specific gravity was less than or equal to 1.005. He had glucose and ketones in his urine. PHYSICAL EXAMINATION: VITAL SIGNS: Temperature was 97.3, pulse of 82, respirations 20, blood pressure is 141/92, pulse oximetry is 99% on room air. GENERAL: This is a 21-year-old gentleman lying in the hospital bed. He does not seem to be in a lot of pain at this time. He is alert and oriented. His speech is a little bit pressured. HEENT: He is normocephalic, atraumatic. EOM is intact. He has moist oral mucosa. NECK: Supple. LUNGS: Clear to auscultation bilaterally. HEART: Regular. He is not tachycardic. ABDOMEN: Flat. He has bowel sounds in all 4 quadrants. He is diffusely tender to palpation throughout. He has some stretch farah from his weight loss. EXTREMITIES: Show no clubbing, cyanosis or edema. He does have a tattoo on his right calf. ASSESSMENT AND PLAN: A 21-year-old gentleman presenting with Crohn disease with a history of 70-pound weight loss in the last ____. At this time, he was started on prednisone as an outpatient, which it does not appear that he was taking correctly; however, we will go ahead and put him on IV methylprednisolone, resume his Asacol. I will have GI see him for their recommendations. Continue supportive care. We will try to be cautious with narcotics with pain control, particularly with his past history of substance use. Further recommendations as the case develops. Nataliia Jackson MD CAS/PRISCILA , 09:45 PM , 12:14 AM
[2017-08-10] MEDS: traMADol HCL 50 MG TAB PO PRN ×4 (01:16→18:26)
[2017-08-10] MEDS: TEMAZEPAM 15 MG CAP PO PRN ×2 (01:17→21:58)
[2017-08-10 06:32] LABS: EOSINOPHIL % 0.1 % (0.0-4.0); HEMATOCRIT 39.8 % (39.0-51.0); LYMPH % 4.6 % (9.0-44.0); LYMPHOCYTE # 0.8 TH/MM3 (1.0-4.8); MEAN CELL VOLUME 82.6 FL (80.0-100.0); MEAN CORPUSCULAR HEMOGLOBIN 26.9 PG (27.0-34.0); MEAN CORPUSCULAR HGB CONC 32.6 % (32.0-36.0); MEAN PLATELET VOLUME 7.3 FL (7.0-11.0); MONO % 5.9 % (0.0-8.0); MONOCYTE # 1.1 TH/MM3 (0-0.9); NEUT % 89.4 % (16.0-70.0); PLATELET COUNT 486 TH/MM3 (150-450); RED BLOOD COUNT 4.82 MIL/MM3 (4.50-5.90); RED CELL DISTRIBUTION WIDTH 12.3 % (11.6-17.2); WHITE BLOOD COUNT 17.9 TH/MM3 (4.0-11.0)
[2017-08-10 06:56] LABS: ALBUMIN 2.4 GM/DL (3.4-5.0); ALKALINE PHOSPHATASE 73 U/L (45-117); ALT (GPT) 10 U/L (9-52); AST (GOT) 4 U/L (15-39); BICARBONATE 24.5 MEQ/L (21.0-32.0); BLOOD UREA NITROGEN 6 MG/DL (7-18); CALCIUM 8.6 MG/DL (8.5-10.1); CHLORIDE 103 MEQ/L (98-107); CREATININE 0.38 MG/DL (0.60-1.30); GLOMERULAR FILTRATION RATE 294 ML/MIN (>89); GLUCOSE,RANDOM 117 MG/DL (74-106); SODIUM (NA) 134 MEQ/L (136-145); TOTAL BILIRUBIN ADULT 0.5 MG/DL (0.2-1.0); TOTAL PROTEIN 6.8 GM/DL (6.4-8.2)
[2017-08-10] MEDS: methylPREDNISolone SOD SUCC 40 MG/1 ML VIAL IV PUSH SCH ×2 (07:57→21:59)
[2017-08-10] MEDS: NS + KCL 20 MEQ INJ 1,000 ML IV SCH ×3 (07:57→18:27)
[2017-08-10] MEDS: MESALAMINE 250 MG CAP PO SCH ×4 (07:57→21:59)
[2017-08-10] MEDS: SODIUM CHLORIDE 0.9% FLUSH 10 ML FLUSH IV FLUSH SCH ×2 (07:58→19:25)
--- NOTE | 2017-08-10 16:18 | HHI.PR ---
Subjective Remarks drinking juice, bloody diarrhea today, still with pain. acknowledges that he needs to be careful with narcotics states not urinating much Objective Vitals Vital Signs Date Time Temp Pulse Resp B/P (MAP) Pulse Ox O2 Delivery O2 Flow Rate FiO2 08/10/17 12:00 96.9 67 20 154/90 (111) 99 08/10/17 10:20 65 08/10/17 09:00 136/86 (103) 08/10/17 08:00 98.7 71 19 169/97 (121) 99 08/10/17 00:00 98.1 64 20 133/79 (97) 99 08/09/17 20:00 97.3 82 20 141/92 (108) 99 08/09/17 18:42 84 20 132/76 (94) 98 08/10/17 08/10/17 08/11/17 15:00 23:00 07:00 Intake Total 360 ml Balance 360 ml Intake Oral 360 ml Result Diagram: 08/10/17 0613 08/10/1713 Imaging Last Impressions Abdomen/Pelvis CT 08/09/17 1437 Signed Impressions: Service Date/Time: Wednesday, August 09, 2017 15:56 - CONCLUSION: 1. A few scattered diverticula in the descending colon without diverticulitis. 2. Borderline lymph nodes clustered in the right lower abdominal quadrant are most characteristic of the benign Peyers patches, normal aggregate of lymph nodes adjacent to the terminal ileum found predominately in younger individuals. 3. Otherwise negative. No acute intraperitoneal or pelvic process to explain current clinical symptoms. Dedrick Wade MD Objective Remarks lying in bed alert , NAD lungs clear to auscultation heart regular not tachycardic abodmen flat, bowel sounds, diffuse tenderness A/P Problem List: (1) Colitis ICD Codes: K52.9 - Colitis Status: Acute Plan: currently on solumedrol IV, has had 2 doses, cont supportive care, discussed pain control, he is agreeable to cont with tramadol at current dose for now, awaiting gi input Nataliia Jackson MD Aug 10, 2017 16:18
[2017-08-11] VITALS: BP 132/86; PULSE 67; RESP 18; TEMP 96.5; O2SAT 99
[2017-08-11] MEDS: traMADol HCL 50 MG TAB PO PRN ×2 (00:29→06:27)
[2017-08-11] MEDS: NS + KCL 20 MEQ INJ 1,000 ML IV SCH (04:00)
[2017-08-11 07:04] LABS: AUTOMATED NEUTROPHIL # 14.1 TH/MM3 (1.8-7.7); BASOPHIL # 0.5 TH/MM3 (0-0.2); EOSINOPHIL % 0.1 % (0.0-4.0); HEMATOCRIT 37.1 % (39.0-51.0); HEMOGLOBIN 12.6 GM/DL (13.0-17.0); LYMPH % 5.3 % (9.0-44.0); LYMPHOCYTE # 0.9 TH/MM3 (1.0-4.8); MEAN CELL VOLUME 83.1 FL (80.0-100.0); MEAN CORPUSCULAR HEMOGLOBIN 28.3 PG (27.0-34.0); MEAN PLATELET VOLUME 7.7 FL (7.0-11.0); MONO % 5.3 % (0.0-8.0); MONOCYTE # 0.9 TH/MM3 (0-0.9); NEUT % 86.3 % (16.0-70.0); PLATELET COUNT 505 TH/MM3 (150-450); RED BLOOD COUNT 4.47 MIL/MM3 (4.50-5.90); RED CELL DISTRIBUTION WIDTH 12.5 % (11.6-17.2); WHITE BLOOD COUNT 16.4 TH/MM3 (4.0-11.0)
[2017-08-11 07:09] LABS: CHLORIDE 105 MEQ/L (98-107); SODIUM (NA) 137 MEQ/L (136-145)
[2017-08-11 07:16] LABS: ALBUMIN 2.3 GM/DL (3.4-5.0); BICARBONATE 28.5 MEQ/L (21.0-32.0); CALCIUM 8.8 MG/DL (8.5-10.1); GLUCOSE,RANDOM 128 MG/DL (74-106)
[2017-08-11 07:17] LABS: BLOOD UREA NITROGEN 3 MG/DL (7-18)
[2017-08-11 07:18] LABS: ALT (GPT) 12 U/L (9-52); AST (GOT) LESS THAN 3 U/L (15-39)
[2017-08-11 07:19] LABS: TOTAL BILIRUBIN ADULT 0.3 MG/DL (0.2-1.0); TOTAL PROTEIN 6.3 GM/DL (6.4-8.2)
[2017-08-11 07:20] LABS: ALKALINE PHOSPHATASE 63 U/L (45-117); CREATININE 0.35 MG/DL (0.60-1.30); GLOMERULAR FILTRATION RATE 323 ML/MIN (>89)
[2017-08-11 07:51] VITALS: BP 153/94; PULSE 84; RESP 16; TEMP 96.3; O2SAT 100
[2017-08-11 08:12] LABS: BANDS 14 % (0-6); LYMPHOCYTES 5 % (9-44); METAMYELOCYTES 1 % (0-1); MONOCYTES 6 % (0-8); NEUTROPHIL # MANUAL DIFF 14.4 TH/MM3 (1.8-7.7); POLYS (SEG NEUTROPHILS) 73 % (16-70)
[2017-08-11 08:53] LABS: WESTERGREN SEDIMENTATION RATE 26 mm/hr (0-15)
[2017-08-11] MEDS: methylPREDNISolone SOD SUCC 40 MG/1 ML VIAL IV PUSH SCH (09:02)
[2017-08-11] MEDS: SODIUM CHLORIDE 0.9% FLUSH 10 ML FLUSH IV FLUSH SCH (09:03)
--- NOTE | 2017-08-11 10:05 | HHI.GIFU ---
Subjective Remarks Patient was seen and examined, feeling much better, no more severe diarrhea, wants to go home Objective Vitals I&O Vital Signs Date Time Temp Pulse Resp B/P (MAP) Pulse Ox O2 Delivery O2 Flow Rate FiO2 08/11/17 07:51 96.3 84 16 153/94 (113) 100 08/11/17 00:00 96.5 67 18 132/86 (101) 99 08/10/17 20:00 96.4 72 18 148/88 (108) 99 08/10/17 18:32 18 08/10/17 18:04 142/70 (94) 08/10/17 18:00 18 08/10/17 15:58 96.9 57 16 164/98 (120) 100 08/10/17 12:00 96.9 67 20 154/90 (111) 99 08/10/17 10:20 65 I/O 08/10/17 08/10/17 08/10/17 08/11/17 08/11/17 08/11/17 07:00 15:00 23:00 07:00 15:00 23:00 Intake Total 360 ml 2778 ml 1032 ml Balance 360 ml 2778 ml 1032 ml Intake Oral 360 ml 500 ml IV Total 2278 ml 1032 ml # Voids 1 # Bowel Movements 1 Laboratory Laboratory Tests Test 08/11/17 06:50 White Blood Count 16.4 Red Blood Count 4.47 Hemoglobin 12.6 Hematocrit 37.1 Mean Corpuscular Volume 83.1 Mean Corpuscular Hemoglobin 28.3 Mean Corpuscular Hemoglobin Concent 34.0 Red Cell Distribution Width 12.5 Platelet Count 505 Mean Platelet Volume 7.7 Neutrophils (%) (Auto) 86.3 Lymphocytes (%) (Auto) 5.3 Monocytes (%) (Auto) 5.3 Eosinophils (%) (Auto) 0.1 Basophils (%) (Auto) 3.0 Neutrophils # (Auto) 14.1 Lymphocytes # (Auto) 0.9 Monocytes # (Auto) 0.9 Eosinophils # (Auto) 0.0 Basophils # (Auto) 0.5 CBC Comment AUTO DIFF Differential Total Cells Counted 100 Neutrophils % (Manual) 73 Band Neutrophils % 14 Lymphocytes % 5 Monocytes % 6 Eosinophils % 1 Neutrophils # (Manual) 14.4 Metamyelocytes 1 Differential Comment FINAL DIFF MANUAL Platelet Estimate HIGH Platelet Morphology Comment NORMAL Erythrocyte Sedimentation Rate 26 Blood Urea Nitrogen 3 Creatinine 0.35 Random Glucose 128 Total Protein 6.3 Albumin 2.3 Calcium Level 8.8 Alkaline Phosphatase 63 Aspartate Amino Transf (AST/SGOT) LESS THAN 3 Alanine Aminotransferase (ALT/SGPT) 12 Total Bilirubin 0.3 Sodium Level 137 Potassium Level 4.4 Chloride Level 105 Carbon Dioxide Level 28.5 Anion Gap 4 Estimat Glomerular Filtration Rate 323 Physical Exam HEENT: Pupils round and reactive to light; normocephalic; atraumatic; no jaundice. Throat is clear. NECK: Neck is supple, no JVD, no lymphadenopathy. CHEST: Chest is clear to auscultation and percussion. CARDIAC: Regular rate and rhythm with no murmur gallop or rubs. ABDOMEN: Soft, nondistended, nontender; no hepatosplenomegaly; bowel sounds are present in all four quadrants. EXTREMITIES: No clubbing, cyanosis, or edema. SKIN: Normal; no rash; no jaundice. TALLOW REFINER: No focal deficits; alert and oriented times three. Assessment and Plan Plan Patient is a 21-year-old gentleman with Crohn colitis was scoped on 01 August which shows severe ulcerations throughout the colon, he was started on prednisone 40 mg tapered and came because of abdominal pain, Patient need to be on mesalamine 800 mg 3 times daily, prednisone taper 40 mg for 10 days then 30 for 10 days then 20 for 10 days then 10 for 10 days We will see the patient in 1 week Patient will need immunomodulator or biologic long-term Arnav Juárez MD Aug 11, 2017 10:05
--- NOTE | 2017-08-11 10:45 | HHI.PR ---
Subjective Remarks Pain is more manageable on tramadol. Urinating more now, had bm this am that was more formed, wants to go home Objective Vitals Vital Signs Date Time Temp Pulse Resp B/P (MAP) Pulse Ox O2 Delivery O2 Flow Rate FiO2 08/11/17 07:51 96.3 84 16 153/94 (113) 100 08/11/17 00:00 96.5 67 18 132/86 (101) 99 08/10/17 20:00 96.4 72 18 148/88 (108) 99 08/10/17 18:32 18 08/10/17 18:04 142/70 (94) 08/10/17 18:00 18 08/10/17 15:58 96.9 57 16 164/98 (120) 100 08/10/17 12:00 96.9 67 20 154/90 (111) 99 Result Diagram: 08/11/17 0650 08/11/17 0650 Imaging Last Impressions Abdomen/Pelvis CT 08/09/17 1437 Signed Impressions: Service Date/Time: Wednesday, August 09, 2017 15:56 - CONCLUSION: 1. A few scattered diverticula in the descending colon without diverticulitis. 2. Borderline lymph nodes clustered in the right lower abdominal quadrant are most characteristic of the benign Peyers patches, normal aggregate of lymph nodes adjacent to the terminal ileum found predominately in younger individuals. 3. Otherwise negative. No acute intraperitoneal or pelvic process to explain current clinical symptoms. Dedrick Wade MD Objective Remarks ambulating in [place] alert , NAD lungs clear to auscultation heart regular not tachycardic abodmen flat, bowel sounds, less tender A/P Problem List: (1) Colitis ICD Codes: K52.9 - Colitis Status: Acute Plan: currently on solumedrol and has had mesalamine, he feels better today, has not had solid food but is eager to go home, seen by GI who feel is able to discharg with f/u with them this week discussed with patient slow progression of diet Assessment and Plan discharge home today Nataliia Jackson MD Aug 11, 2017 10:45
[2017-08-11] MEDS ORDERED: PRED10 PO (10:54)
[2017-08-11] MEDS ORDERED: TRAM50TA PO (10:58)
[2017-08-11] MEDS ORDERED: ASAC800T PO (10:58)
--- NOTE | 2017-08-11 11:18 | HHI.DS ---
Discharge Summary Admission Date Aug 09, 2017 at 17:39 Discharge Date: Aug 11, 2017 Admitting Diagnosis intractable vomiting (1) Colitis Diagnosis: Principal ICD Codes: K52.9 - Colitis Status: Acute Consultants GI Dr Estrada Brief History Patient admitted for intactable abdominal pain , emesis and diarrhea, Hx of Crohns disease recently seen by GI and started on oral prednisone but patient on presentation to the ER stated his symptoms had actually worsened. CBC/BMP: 08/11/17 0650 08/11/17 0650 Significant Findings Laboratory Tests Test 08/09/17 15:10 08/09/17 17:30 08/10/17 06:13 08/11/17 06:50 White Blood Count 15.5 TH/MM3 (4.0-11.0) 17.9 TH/MM3 (4.0-11.0) 16.4 TH/MM3 (4.0-11.0) Platelet Count 582 TH/MM3 (150-450) 486 TH/MM3 (150-450) 505 TH/MM3 (150-450) Neutrophils (%) (Auto) 74.2 % (16.0-70.0) 89.4 % (16.0-70.0) 86.3 % (16.0-70.0) Monocytes (%) (Auto) 13.3 % (0.0-8.0) Neutrophils # (Auto) 11.4 TH/MM3 (1.8-7.7) 16.0 TH/MM3 (1.8-7.7) 14.1 TH/MM3 (1.8-7.7) Monocytes # (Auto) 2.1 TH/MM3 (0-0.9) 1.1 TH/MM3 (0-0.9) Total Protein 8.8 GM/DL (6.4-8.2) 6.3 GM/DL (6.4-8.2) Albumin 3.3 GM/DL (3.4-5.0) 2.4 GM/DL (3.4-5.0) 2.3 GM/DL (3.4-5.0) Aspartate Amino Transf (AST/SGOT) 4 U/L (15-39) 4 U/L (15-39) LESS THAN 3 U/L (15-39) Sodium Level 130 MEQ/L (136-145) 134 MEQ/L (136-145) Potassium Level 3.4 MEQ/L (3.5-5.1) Chloride Level 96 MEQ/L (98-107) Lipase 66 U/L (73-393) Urine Glucose (UA) 100 mg/dL (NEG) Urine Ketones 40 mg/dL (NEG) Mean Corpuscular Hemoglobin 26.9 PG (27.0-34.0) Lymphocytes (%) (Auto) 4.6 % (9.0-44.0) 5.3 % (9.0-44.0) Lymphocytes # (Auto) 0.8 TH/MM3 (1.0-4.8) 0.9 TH/MM3 (1.0-4.8) Blood Urea Nitrogen 6 MG/DL (7-18) 3 MG/DL (7-18) Creatinine 0.38 MG/DL (0.60-1.30) 0.35 MG/DL (0.60-1.30) Random Glucose 117 MG/DL (74-106) 128 MG/DL (74-106) Red Blood Count 4.47 MIL/MM3 (4.50-5.90) Hemoglobin 12.6 GM/DL (13.0-17.0) Hematocrit 37.1 % (39.0-51.0) Basophils (%) (Auto) 3.0 % (0.0-2.0) Basophils # (Auto) 0.5 TH/MM3 (0-0.2) Neutrophils % (Manual) 73 % (16-70) Band Neutrophils % 14 % (0-6) Lymphocytes % 5 % (9-44) Neutrophils # (Manual) 14.4 TH/MM3 (1.8-7.7) Platelet Estimate HIGH (NORMAL) Erythrocyte Sedimentation Rate 26 mm/hr (0-15) Anion Gap 4 MEQ/L (5-15) Imaging Last Impressions Abdomen/Pelvis CT 08/09/17 1117 Signed Impressions: Service Date/Time: Wednesday, August 09, 2017 15:56 - CONCLUSION: 1. A few scattered diverticula in the descending colon without diverticulitis. 2. Borderline lymph nodes clustered in the right lower abdominal quadrant are most characteristic of the benign Peyers patches, normal aggregate of lymph nodes adjacent to the terminal ileum found predominately in younger individuals. 3. Otherwise negative. No acute intraperitoneal or pelvic process to explain current clinical symptoms. Dedrick Wade MD PE at Discharge ambulating in nash alert , NAD lungs clear to auscultation heart regular not tachycardic abodmen flat, bowel sounds, less tender Hospital Course Patient admitted and hydrated with IV fluids. Placed on solumedrol IV and maintained on his mesalamine. He had bloody bowel movements and significant pain during the first 24 hrs. On the day of discharge his bowel movements were becoming more formed and his pain was better controlled. He was still on a liquid diet but was eager to go home and gradually progress his diet at home. He was seen by GI who stated he could leave on prednison taper and Asacol with follow up with them this week. Pt Condition on Discharge: Stable Discharge Disposition: Discharge Home Discharge Instructions DIET: Follow Instructions for: Full Liquid Diet Additional Diet Instructions: progress diet as tolerated Activities you can perform: Regular-No Restrictions Follow up Referrals: Gastroenterology - 1 Week with Arnav Juárez MD New Medications: Mesalamine DR (Asacol HD) 800 Mg Tab 1600 MG PO TID for Ulcerative colitis for 30 Days, #180 TAB 0 Refills Swallow whole. Take on an empty stomach. Prednisone (Prednisone) 10 Mg Tab 10 MG PO DAILY for Crohns for 40 Days, #100 TAB 0 Refills 4 pills daily for 10 days then 3 pills for 10 days then 2 pills for 10 days then 1 pill for 10 days Tramadol (Tramadol) 50 Mg Tab 100 MG PO Q6H PRN for PAIN for 7 Days, #56 TAB 0 Refills Discontinued Medications: Prednisone (Prednisone) 10 Mg Tab 10 MG PO DAILY, TAB 0 Refills Nataliia Jackson MD Aug 11, 2017 11:18
[2017-08-11 12:00] VITALS: BP 142/86; PULSE 81; RESP 16; TEMP 97.8; O2SAT 99
--- NOTE | 2017-08-12 08:16 | MB ---
cc: Arnav Juárez MD DATE: 08/10/2017 REASON FOR CONSULTATION: Abdominal pain, history of Crohn's disease. HISTORY OF PRESENT ILLNESS: Thank you for the consultation. A 21-year-old male who has history of Crohn's disease. The patient is a poor historian, but known to us from previous encounter Crohn's Dx. abdominal pain and diarrhea. He did not have insurance until recently. Apparently, he had a colonoscopy last year which showed Crohn colitis. The patient was started on medication in the clinic and he was supposed to have a colonoscopy he had it on August 01 2017 showing sever crohn's colitis he was started on prednisone taper, but then he started having more diarrhea and more abdominal pain, so he came to the emergency room. PAST MEDICAL HISTORY: The patient has H/O ADHD, bipolar disorder, Crohn's disease. PAST SURGICAL HISTORY: Tube placement in the ears at young age. ALLERGIES TYLENOL AND OXYCODONE. MEDICATIONS: Patient was on prednisone. SOCIAL HISTORY: Positive for smoking. REVIEW OF SYSTEMS: All 12 points negative except HPI with significant weight loss, diarrhea, no bleeding, nausea. FAMILY HISTORY: Significant for Crohn disease. PHYSICAL EXAMINATION: GENERAL: Alert, oriented, complaining of abdominal pain . HEENT: Pupils are reactive to light. NECK: Supple. CHEST: Clear to auscultation. HEART: Regular rate and rhythm. No murmur or gallop. ABDOMEN: Soft, diffuse tenderness. Positive bowel sounds. No hepatosplenomegaly. EXTREMITIES: No edema, clubbing or cyanosis. NEUROLOGIC: Intact. PSYCHIATRIC: Psychologically appropriate, but anxious. LABORATORY DATA: White count 17.9, hemoglobin 13.0, platelets 486. INR 1.1. Lipase 66. Liver function tests normal. BUN 6, creatinine 0.38. HIV was not noted. IMAGING STUDIES: CT of the abdomen showed a few scattered diverticula in the descending colon. No diverticulitis. Lymph node cluster in the right lower abdomen, most likely benign with the patient's age. CT not show any intraperitoneal or pelvic process. ASSESSMENT: A 21-year-old gentleman who has Crohn's disease who is very compliant with medication and with significant weight loss. The patient will need to continue prednisone as now. start Asacol 800 TID, Further plan depends on how he is doing. MD MARIELLE Burch// , 08:15 PM , 08:38 PM RYAN
== END 2017-08-11 14:17 | disposition home or self-care (01) ==
LOC: PHED 14:08 → PHEDA 17:39 → PH3A 18:44
PROVIDERS: ADMIT Legal Medicine; ATTEND Legal Medicine
DX: K52.9 Noninfective gastroenteritis and colitis, unspecified (principal); K57.30 Diverticulosis of large intestine without perforation or abscess without bleeding; K50.10 Crohn's disease of large intestine without complications; F31.9 Bipolar disorder, unspecified; F17.210 Nicotine dependence, cigarettes, uncomplicated
CPT/HCPCS: 74177; 80053; 81001; 83605; 83690; 85007; 85025; 85027; 85610; 85652; 85730; 86703; 96361; 96374; 96375; 96376; 99285; J1885; J2270; J2405; J2920; J3480; J7030; Q9967

== ENCOUNTER 2017-08-18 08:09 | Emergency (ER) | payer OTHER ==
[~2017-08-18] VITALS: Ht 172.7 cm; Wt 60.0 kg
[~2017-08-18 08:09] MED LIST changes: +PRED10 PO; +TRAM50TA PO
[2017-08-18 08:21] VITALS: BP 130/82; PULSE 89; RESP 17; TEMP 98.1; O2SAT 97
[2017-08-18] MEDS ORDERED: SODIUM CHLOR 0.9% 1000 ML INJ 1,000 ML IV SCH (08:26)
[2017-08-18] MEDS ORDERED: SODIUM CHLORIDE 0.9% FLUSH 10 ML FLUSH IV FLUSH PRN (08:30)
[2017-08-18] MEDS ORDERED: ONDANSETRON HCL 4 MG/2 ML VIAL IVP ONE (08:30)
[2017-08-18 08:32] VITALS: RESP 15; TEMP 98; O2SAT 96
[2017-08-18 09:01] LABS: AUTOMATED NEUTROPHIL # 10.6 TH/MM3 (1.8-7.7); BASOPHIL % 0.1 % (0.0-2.0); EOSINOPHIL # 0.3 TH/MM3 (0-0.4); EOSINOPHIL % 1.7 % (0.0-4.0); HEMATOCRIT 43.6 % (39.0-51.0); HEMOGLOBIN 14.4 GM/DL (13.0-17.0); LYMPH % 16.3 % (9.0-44.0); LYMPHOCYTE # 2.5 TH/MM3 (1.0-4.8); MEAN CELL VOLUME 81.3 FL (80.0-100.0); MEAN CORPUSCULAR HEMOGLOBIN 26.9 PG (27.0-34.0); MEAN CORPUSCULAR HGB CONC 33.1 % (32.0-36.0); MEAN PLATELET VOLUME 6.5 FL (7.0-11.0); MONO % 13.2 % (0.0-8.0); NEUT % 68.7 % (16.0-70.0); PLATELET COUNT 594 TH/MM3 (150-450); RED BLOOD COUNT 5.37 MIL/MM3 (4.50-5.90); RED CELL DISTRIBUTION WIDTH 14.1 % (11.6-17.2); WHITE BLOOD COUNT 15.4 TH/MM3 (4.0-11.0)
[2017-08-18 09:11] LABS: INTERNATIONAL NORMALIZED RATIO 1.1 RATIO; PROTHROMBIN TIME - PATIENT 11.4 SEC (9.8-11.6)
[2017-08-18 09:20] LABS: ALBUMIN 2.4 GM/DL (3.4-5.0); AST (GOT) 6 U/L (15-39); BICARBONATE 31.7 MEQ/L (21.0-32.0); BLOOD UREA NITROGEN 9 MG/DL (7-18); CALCIUM 8.8 MG/DL (8.5-10.1); CHLORIDE 94 MEQ/L (98-107); CREATININE 0.67 MG/DL (0.60-1.30); GLOMERULAR FILTRATION RATE 153 ML/MIN (>89); GLUCOSE,RANDOM 96 MG/DL (74-106); SODIUM (NA) 135 MEQ/L (136-145)
[2017-08-18 09:21] LABS: ALT (GPT) 14 U/L (9-52)
[2017-08-18 09:23] LABS: ALKALINE PHOSPHATASE 80 U/L (45-117); TOTAL BILIRUBIN ADULT 0.4 MG/DL (0.2-1.0); TOTAL PROTEIN 6.7 GM/DL (6.4-8.2)
--- NOTE | 2017-08-18 09:36 | PD ---
HPI Chief Complaint: Abdominal Pain Time Seen by Provider: 08:24 Travel History International Travel<30 days: No Contact w/Intl Traveler<30days: No Traveled to known affect area: No History of Present Illness HPI Patient is a 21-year-old male who presents the emergency room with complaints of acute on chronic abdominal pain. Patient reports that he was recently diagnosed with Crohn's disease 8 months ago, reports that he has been having abdominal pain with associated diarrhea. Patient reports that he was recently admitted to the hospital for similar symptoms, he did see a addiction social worker who started him on steroids as well as on antibiotics. Patient reports that he was told he had Crohn's colitis, he is still currently taking his steroids and antibiotics, reports that he is not feeling any better. Patient reports that he is diffuse abdominal pain, reports that he has not been able to eat or drink anything, reports that he feels dehydrated. Patient denies any fevers or chill. Patient also reports that he has been having dysuria with urinary urgency and frequency. Patient reports concerns for possible UTI. PFSH Past Medical History ADD: Yes ADHD: Yes Asthma: No Bipolar Disorder: Yes Anxiety: No Depression: No Cancer: No Cardiovascular Problems: No COPD: No Cerebrovascular Accident: No Diabetes: No Diminished Hearing: No Endocrine: No Gastrointestinal Disorders: Yes (crohns) GERD: No Genitourinary: No Hiatal Hernia: No Implanted Vascular Access Dvce: No Musculoskeletal: No Neurologic: Yes Psychiatric: Yes (bipolar, ADD, ADHD) Reproductive: No Respiratory: No Immunizations Current: Yes Migraines: Yes Seizures: No Sleep Apnea: No Thyroid Disease: No Ulcer: No PNEUMOCCOCAL Vaccine (Year): 3 Past Surgical History Abdominal Surgery: No AICD: No Arteriovenous Shunt: No Cardiac Surgery: No Endocrine Surgery: No Eye Surgery: No Genitourinary Surgery: No Gynecologic Surgery: No Insulin Pump: No Joint Replacement: No Neurologic Surgery: No Oral Surgery: No Pacemaker: No Thoracic Surgery: No Tympanostomy Tube: Yes Other Surgery: Yes (TUBES IN EARS) Social History Alcohol Use: No (Denies) Tobacco Use: Yes (1/2 PPD) Substance Use: Yes Allergies-Medications (Allergen,Severity, Reaction): Coded Allergies: oxycodone (Verified Allergy, Intermediate, Rash, 08/18/17) Reported Meds & Prescriptions Reported Meds & Active Scripts Active Macrobid (Nitrofurantoin Monohydrate Macrocrystals) 100 Mg Capsule 100 Mg PO BID 10 Days Tramadol (Tramadol HCl) 50 Mg Tab 100 Mg PO Q6H PRN 7 Days Asacol HD (Mesalamine) 800 Mg Tab 1,600 Mg PO TID 30 Days Swallow whole. Take on an empty stomach. Prednisone 10 Mg Tab 10 Mg PO DAILY 40 Days 4 pills daily for 10 days then 3 pills for 10 days then 2 pills for 10 days then 1 pill for 10 days Review of Systems General / Constitutional: No: Fever Eyes: No: Visual changes HENT: No: Headaches Cardiovascular: No: Chest Pain or Discomfort Respiratory: No: Shortness of Breath Gastrointestinal: Positive: Diarrhea, Abdominal Pain, No: Nausea, Vomiting, Constipation Genitourinary: No: Dysuria Musculoskeletal: No: Pain Skin: No Rash Neurologic: No: Weakness Psychiatric: No: Depression Endocrine: No: Polydipsia Hematologic/Lymphatic: No: Easy Bruising Physical Exam Narrative GENERAL: moderate distress SKIN: Focused skin assessment warm/dry. HEAD: Atraumatic. Normocephalic. EYES: Pupils equal and round. No scleral icterus. No injection or drainage. ENT: No nasal bleeding or discharge. Mucous membranes pink and moist. NECK: Trachea midline. No JVD. CARDIOVASCULAR: Regular rate and rhythm. No murmur appreciated. RESPIRATORY: No accessory muscle use. Clear to auscultation. Breath sounds equal bilaterally. GASTROINTESTINAL: Abdomen soft, diffusely-tender, peritoneal signs, nondistended. Hepatic and splenic margins not palpable. MUSCULOSKELETAL: No obvious deformities. No clubbing. No cyanosis. No edema. NEUROLOGICAL: Awake and alert. No obvious cranial nerve deficits. Motor grossly within normal limits. Normal speech. PSYCHIATRIC: Appropriate mood and affect; insight and judgment normal. Data Data Last Documented VS Vital Signs Date Time Temp Pulse Resp B/P (MAP) Pulse Ox O2 Delivery O2 Flow Rate FiO2 08/18/17 14:25 97.8 85 15 115/77 (90) 100 Room Air Orders Orders Complete Blood Count With Diff (08/18/17 08:26) Comprehensive Metabolic Panel (08/18/17 08:26) Lipase (08/18/17 08:26) Prothrombin Time / Inr (Pt) (08/18/17 08:26) Act Partial Throm Time (Ptt) (08/18/17 08:26) Urinalysis - C+S If Indicated (08/18/17 08:26) Iv Access Insert/Monitor (08/18/17 08:26) Ecg Monitoring (08/18/17 08:26) Oximetry (08/18/17 08:26) NPO (08/18/17 08:26) Ondansetron Inj (Zofran Inj) (08/18/17 08:30) Sodium Chlor 0.9% 1000 Ml Inj (Ns 1000 M (08/18/17 08:26) Sodium Chloride 0.9% Flush (Ns Flush) (08/18/17 08:30) Ct Abd/Pel W/O Iv Contrast (08/18/17 09:33) Gc And Chlamydia Pcr (08/18/17 09:35) Urine Culture (08/18/17 10:00) Ceftriaxone Inj (Rocephin Inj) (08/18/17 12:45) Morphine Inj (Morphine Inj) (08/18/17 13:00) C Diff Toxin Pcr (08/18/17 13:15) Methylprednisolone So Succ Inj (Solumedr (08/18/17 13:15) Consult Gastroenterology (08/18/17 ) (Hub Use Only)Inp Phy Cons/Ref (08/18/17 ) Ed Discharge Order (08/18/17 14:41) Labs Laboratory Tests Test 08/18/17 08:38 08/18/17 10:00 White Blood Count 15.4 TH/MM3 Red Blood Count 5.37 MIL/MM3 Hemoglobin 14.4 GM/DL Hematocrit 43.6 % Mean Corpuscular Volume 81.3 FL Mean Corpuscular Hemoglobin 26.9 PG Mean Corpuscular Hemoglobin Concent 33.1 % Red Cell Distribution Width 14.1 % Platelet Count 594 TH/MM3 Mean Platelet Volume 6.5 FL Neutrophils (%) (Auto) 68.7 % Lymphocytes (%) (Auto) 16.3 % Monocytes (%) (Auto) 13.2 % Eosinophils (%) (Auto) 1.7 % Basophils (%) (Auto) 0.1 % Neutrophils # (Auto) 10.6 TH/MM3 Lymphocytes # (Auto) 2.5 TH/MM3 Monocytes # (Auto) 2.0 TH/MM3 Eosinophils # (Auto) 0.3 TH/MM3 Basophils # (Auto) 0.0 TH/MM3 CBC Comment DIFF FINAL Differential Comment Prothrombin Time 11.4 SEC Prothromb Time International Ratio 1.1 RATIO Activated Partial Thromboplast Time 26.1 SEC Blood Urea Nitrogen 9 MG/DL Creatinine 0.67 MG/DL Random Glucose 96 MG/DL Total Protein 6.7 GM/DL Albumin 2.4 GM/DL Calcium Level 8.8 MG/DL Alkaline Phosphatase 80 U/L Aspartate Amino Transf (AST/SGOT) 6 U/L Alanine Aminotransferase (ALT/SGPT) 14 U/L Total Bilirubin 0.4 MG/DL Sodium Level 135 MEQ/L Potassium Level 3.7 MEQ/L Chloride Level 94 MEQ/L Carbon Dioxide Level 31.7 MEQ/L Anion Gap 9 MEQ/L Estimat Glomerular Filtration Rate 153 ML/MIN Lipase 71 U/L Urine Color YELLOW Urine Turbidity CLEAR Urine pH 6.0 Urine Specific [place] 1.036 Urine Protein 30 mg/dL Urine Glucose (UA) NEG mg/dL Urine Ketones 10 mg/dL Urine Occult Blood NEG Urine Nitrite NEG Urine Bilirubin NEG Urine Urobilinogen 2.0 MG/DL Urine Leukocyte Esterase NEG Urine RBC 2 /hpf Urine WBC 1 /hpf Urine Squamous Epithelial Cells <1 /hpf Urine Calcium Oxalate Crystals RARE /hpf Urine Bacteria MOD /hpf Urine Mucus MANY /lpf Microscopic Urinalysis Comment CULTURE INDICATED Chlamydia trachomatis DNA (PCR) NOT DETECTED Neisseria gonorrhoeae DNA (PCR) NOT DETECTED MDM Medical Decision Making Medical Screen Exam Complete: Yes Emergency Medical Condition: Yes Medical Record Reviewed: Yes Interpretation(s) Vital Signs Date Time Temp Pulse Resp B/P (MAP) Pulse Ox O2 Delivery O2 Flow Rate FiO2 08/18/17 08:32 98.0 15 96 Room Air 08/18/17 08:26 15 08/18/17 08:21 98.1 89 17 130/82 (98) 97 Differential Diagnosis Crohn's colitis, dehydration, electrolyte abnormality, UTI, urethritis Narrative Course During the course of the patients emergency department visit, the patients history, examination, and differential diagnosis were reviewed with the patient. The patient was placed on a school lunch monitor with oximetry and frequent blood pressure monitoring. The patient had an IV access obtained and blood work sent for analysis. The patient was initially provided IVF, IV zofran, IV morphine (patient has no allergy to morphine and has tolerated this in the past). The patients laboratory studies were reviewed and remarkable for CBC & BMP Diagram 08/18/17 08:38 Total Protein 6.7, Albumin 2.4 L, Calcium Level 8.8, Alkaline Phosphatase 80, Aspartate Amino Transf (AST/SGOT) 6 L, Alanine Aminotransferase (ALT/SGPT) 14, Total Bilirubin 0.4 Radiology studies were reviewed and remarkable for Last Impressions Abdomen/Pelvis CT 08/18/17 0933 Signed Impressions: Service Date/Time: Friday, August 18, 2017 10:19 - CONCLUSION: Mild circumferential wall thickening of the entire transverse colon and likely a portion of the distal ascending and proximal descending colon. No significant surrounding inflammation is present. However, given the history of Crohn disease, inflammatory bowel disease is a top consideration. No other acute finding is identified. Isaiah Hoyos MD Patient reevaluated, patient not feeling any better. Patient reports that pain is worse, I did review all labs and also with patient as well as all incidental findings. Patient does have a leukocytosis, most likely from being on steriods for his chron's exacerbation. Patient has been following up with his addiction social worker as outpatient, reports his steroids are not helping. Call made to pt's GI doctor, Dr. Hernandez to review case. Patient was discharged on steroids as well as anasacol for Chron's disease. I do not believe the patient has been compliant with his medications. Case reviewed with GI, plan to have patient followed up in the office tomorrow. Patient will not be admitted to the hospital as he is on all the correct medications at this time, he is able to drink fluids prior to being discharged from the hospital. He understands importance of medication compliance. He will return to ER as needed. Diagnosis Primary Impression: Abdominal pain Qualified Codes: R10.9 - Unspecified abdominal pain Additional Impression: UTI (urinary tract infection) Qualified Codes: N30.00 - Acute cystitis without hematuria Patient Instructions: General Instructions Additional Instructions: Please follow-up with Dr. Juárez tomorrow Please take all antibiotics as well as all medications as prescribed Return to the emergency room as needed Med/Other Pt SpecificInfo: Prescription(s) given Scripts Nitrofurantoin Monohydrate Macrocrystals (Macrobid) 100 Mg Capsule 100 MG PO BID for Infection for 10 Days, #20 CAP 0 Refills Prov: Tricia Campos DO 08/18/17 Disposition: 01 DISCHARGE HOME Condition: Stable Tricia Campos DO August 18, 2017 09:36
[2017-08-18 10:00] VITALS: BP 124/76; PULSE 78; RESP 16; TEMP 97.9; O2SAT 99
[2017-08-18 10:49] LABS: BACTERIA, URINE MOD /hpf; BLOOD, URINE NEG (NEG); CALCIUM OXALATE CRYSTALS,URINE RARE /hpf; GLUCOSE,URINE NEG (NEG); KETONE, URINE 10 mg/dL (NEG); MUCUS URINE MANY /lpf (OCC); NITRITE,URINE NEG (NEG); SQUAMOUS EPITHELIAL CELL URINE <1 /hpf (0-5); URINE COLOR YELLOW (YELLW/STRAW); URINE LEUKOCYTE ESTERASE NEG (NEG)
[2017-08-18 10:51] LABS: BILIRUBIN, URINE NEG (NEG)
--- NOTE | 2017-08-18 10:58 | RADRPT ---
EXAM DATE/TIME: 08/18/2017 10:19 [facility] COMPARISON: CT ABDOMEN & PELVIS W CONTRAST, November 01, 2016, 16:21. CT ABDOMEN & PELVIS W CONTRAST, July 17, 2017 , 16:48. CT ABDOMEN & PELVIS W CONTRAST, August 09, 2017, 15:56. INDICATIONS : Diffuse abdomen pain for eight months. ORAL CONTRAST: No oral contrast ingested. RADIATION DOSE: 6.64 CTDIvol (mGy) MEDICAL HISTORY : chron's disease SURGICAL HISTORY : None. ENCOUNTER: Initial ACUITY: 7 - 11 months PAIN SCALE: 7/10 LOCATION: Bilateral abdomen TECHNIQUE: Volumetric scanning of the abdomen and pelvis was performed. Using automated exposure control and ad justment of the mA and/or kV according to patient size, radiation dose was kept as low as reasonably achievable to obtain optimal diagnostic quality images. DICOM format image data is available electro nically for review and comparison. FINDINGS: LOWER LUNGS: The visualized lower lungs are clear. LIVER: Homogeneous density without lesion. There is no dilation of the biliary tree. No calcified gallston es. SPLEEN: Normal size without lesion. PANCREAS: Within normal limits. KIDNEYS: Normal in size and shape. There is no mass, stone, or hydronephrosis. ADRENAL GLANDS: Within normal limits. VASCULAR: There is no aortic aneurysm. BOWEL/MESENTERY: The stomach and small bowel demonstrate no abnormality. Appendix is normal and terminal ileum demonst rates no appreciable abnormality. There are stable lymph nodes in the ileocolic mesentery which are m ildly enlarged. Wall thickening is present throughout the transverse colon with likely partial involv ement of the distal ascending and proximal descending colon as well. Air-fluid levels are present in the sigmoid colon. No free air or free fluid is present. ABDOMINAL WALL: Within normal limits. RETROPERITONEUM: There is no lymphadenopathy. BLADDER: No wall thickening or mass. REPRODUCTIVE: Within normal limits. INGUINAL: There is no lymphadenopathy or hernia. MUSCULOSKELETAL: No acute abnormality. CONCLUSION: Mild circumferential wall thickening of the entire transverse colon and likely a portion of the dista l ascending and proximal descending colon. No significant surrounding inflammation is present. Howeve r, given the history of Crohn disease, inflammatory bowel disease is a top consideration. No other ac [place] finding is identified. Isaiah Hoyos MD on August 18, 2017 at 10:50 Board Certified Radiologist. This report was verified electronically.
[2017-08-18 12:00] VITALS: BP 118/83; PULSE 78; RESP 17; TEMP 97.7; O2SAT 99
[2017-08-18] MEDS ORDERED: cefTRIAXone INJ 1,000 MG in SODIUM CHLORIDE 0.9% INJ 100 ML IV ONE (12:45)
[2017-08-18] MEDS ORDERED: MORPHINE SULFATE 4 MG/ML INJ IV PUSH ONE (13:00)
[2017-08-18] MEDS ORDERED: methylPREDNISolone SOD SUCC 40 MG/1 ML VIAL IV PUSH ONE (13:15)
[2017-08-18 14:25] VITALS: BP 115/77; PULSE 85; RESP 15; TEMP 97.8; O2SAT 100
[2017-08-18] MEDS ORDERED: MACR100C2 PO (14:35)
--- NOTE | 2017-08-18 14:39 | PD.CONS ---
HPI History of Present Illness This is a 21 year old M known to our service who had multiple recent hospital admissions and ER visit with complaint of abdominal pain. Complaints at this time are nausea, vomiting, weight loss, abdominal pain and diarrhea. Reports hematemesis and hematochezia has been chronic, however, H/H done today in ER are stable. CT abdomen and pelvis W/O IV contrast (08/18) --> Mild circumferential wall thickening of the entire transverse colon and likely a portion of the distal ascending and proximal descending colon. No significant surrounding inflammation is present. However, given the history of Crohn disease , inflammatory bowel disease is a top consideration. No other acute finding is identified. Pt was recently seen by our service in the office. Had a colonoscopy on August 01 --> Diffuse abnormal mucosa was found throughout the entire examined colon, mucosa was congested, edematous, erythematous, ulcerated , friable, and had deep and superficial ulcers. Pathology most consistent with ulcerative colitis. Pt was told to continue Asacol and placed on a Prednisone taper. Pt was most recently seen by our service at [facility] last week , and told to continue the Mesalamine and restarted on a Prednisone taper with instructions to follow up in the office in one week. Noted that pt will need immunomodulator or biologic long-term. At time of my exam, pt appears to be resting in bed comfortably, there has been no reports of diarrhea or emesis since being in hospital. In fact, pt states he is unable to give a stool sample. (Shae Case) PFSH Past Medical History Ulcerative colitis (Shae Case) Coded Allergies: oxycodone (Verified Allergy, Intermediate, Rash, 08/18/17) Review of Systems Gastrointestinal: COMPLAINS OF: Abdominal pain, Bloody stools, Diarrhea, Nausea , Vomiting, Hematemesis (Shae Case) GI Exam Vitals I&O Vital Signs Date Time Temp Pulse Resp B/P (MAP) Pulse Ox O2 Delivery O2 Flow Rate FiO2 08/18/17 13:12 17 08/18/17 12:00 97.7 78 17 118/83 (95) 99 08/18/17 10:00 97.9 78 16 124/76 (92) 99 Room Air 08/18/17 08:32 98.0 15 96 Room Air 08/18/17 08:26 15 08/18/17 08:21 98.1 89 17 130/82 (98) 97 I/O 08/17/17 08/17/17 08/17/17 08/18/17 08/18/17 08/18/17 07:00 15:00 23:00 07:00 15:00 23:00 Intake Total 1100 ml Balance 1100 ml Intake IV Total 1100 ml # Voids 1 # Bowel Movements 1 Imaging Last Impressions Abdomen/Pelvis CT 08/18/17 0933 Signed Impressions: Service Date/Time: Friday, August 18, 2017 10:19 - CONCLUSION: Mild circumferential wall thickening of the entire transverse colon and likely a portion of the distal ascending and proximal descending colon. No significant surrounding inflammation is present. However, given the history of Crohn disease, inflammatory bowel disease is a top consideration. No other acute finding is identified. Isaiah Hoyos MD Laboratory Test 08/18/17 08:38 08/18/17 10:00 White Blood Count 15.4 TH/MM3 Red Blood Count 5.37 MIL/MM3 Hemoglobin 14.4 GM/DL Hematocrit 43.6 % Mean Corpuscular Volume 81.3 FL Mean Corpuscular Hemoglobin 26.9 PG Mean Corpuscular Hemoglobin Concent 33.1 % Red Cell Distribution Width 14.1 % Platelet Count 594 TH/MM3 Mean Platelet Volume 6.5 FL Neutrophils (%) (Auto) 68.7 % Lymphocytes (%) (Auto) 16.3 % Monocytes (%) (Auto) 13.2 % Eosinophils (%) (Auto) 1.7 % Basophils (%) (Auto) 0.1 % Neutrophils # (Auto) 10.6 TH/MM3 Lymphocytes # (Auto) 2.5 TH/MM3 Monocytes # (Auto) 2.0 TH/MM3 Eosinophils # (Auto) 0.3 TH/MM3 Basophils # (Auto) 0.0 TH/MM3 CBC Comment DIFF FINAL Differential Comment Prothrombin Time 11.4 SEC Prothromb Time International Ratio 1.1 RATIO Activated Partial Thromboplast Time 26.1 SEC Blood Urea Nitrogen 9 MG/DL Creatinine 0.67 MG/DL Random Glucose 96 MG/DL Total Protein 6.7 GM/DL Albumin 2.4 GM/DL Calcium Level 8.8 MG/DL Alkaline Phosphatase 80 U/L Aspartate Amino Transf (AST/SGOT) 6 U/L Alanine Aminotransferase (ALT/SGPT) 14 U/L Total Bilirubin 0.4 MG/DL Sodium Level 135 MEQ/L Potassium Level 3.7 MEQ/L Chloride Level 94 MEQ/L Carbon Dioxide Level 31.7 MEQ/L Anion Gap 9 MEQ/L Estimat Glomerular Filtration Rate 153 ML/MIN Lipase 71 U/L Urine Color YELLOW Urine Turbidity CLEAR Urine pH 6.0 Urine Specific [place] 1.036 Urine Protein 30 mg/dL Urine Glucose (UA) NEG mg/dL Urine Ketones 10 mg/dL Urine Occult Blood NEG Urine Nitrite NEG Urine Bilirubin NEG Urine Urobilinogen 2.0 MG/DL Urine Leukocyte Esterase NEG Urine RBC 2 /hpf Urine WBC 1 /hpf Urine Squamous Epithelial Cells <1 /hpf Urine Calcium Oxalate Crystals RARE /hpf Urine Bacteria MOD /hpf Urine Mucus MANY /lpf Microscopic Urinalysis Comment CULTURE INDICATED Chlamydia trachomatis DNA (PCR) NOT DETECTED Neisseria gonorrhoeae DNA (PCR) NOT DETECTED Date/Time Source Procedure Growth Status 08/18/17 10:00 Urine Random Urine Urine Culture Pending Received Physical Examination HEENT: Normocephalic; atraumatic CHEST: Even/unlabored CARDIAC: RRR ABDOMEN: Soft, nondistended, pt reports diffuse tenderness, bowel sounds active EXTREMITIES: No clubbing, cyanosis, or edema. SKIN: Normal; no rash; no jaundice. SPA RECEPTIONIST: No focal deficits; alert and oriented times three. (Shae Case [facility]) Assessment and Plan Plan Assessment: - Ulcerative colitis- multiple recent admissions for complaints of abdominal pain, nausea, vomiting, diarrhea- last seen by our service at [facility] last week. Advised to continue Mesalamine and restarted on Prednisone taper with instructions to follow up in our office in one week, pt has not schedule appt. Colonoscopy on August 01 --> Diffuse abnormal mucosa was found throughout the entire examined colon, mucosa was congested, edematous, erythematous, ulcerated, friable, and had deep and superficial ulcers. Pathology most consistent with ulcerative colitis. CT abdomen and pelvis W/O IV contrast (08/18) --> Mild circumferential wall thickening of the entire transverse colon and likely a portion of the distal ascending and proximal descending colon. No significant surrounding inflammation is present. However, given the history of Crohn disease, inflammatory bowel disease is a top consideration. No other acute finding is identified. Reports of chronic hematochezia and hematemesis, H/H stable at this time. Plan: OK to DC- discussed with pt to follow up in office tomorrow- we will add him on to the schedule Continue Mesalamine and Prednisone at 40mg Will need immunomodulator or biologic long-term- this can be done outpatient Would also likely benefit from stool studies Pt has been seen and examined by myself and Dr. Hamilton and this note is written on her behalf (Shae Case) Physician Comments seen, examined agree with above if no improvement return to ed , observation admission by medical team for iv steroids, iv antibiotics medical team did not feel he meets criteria for admission we will also refer him to research study if interested (Jacquelyn Hamilton MD) Shae Case August 18, 2017 14:39 Jacquelyn Hamilton MD August 18, 2017 15:02
[2017-08-18 14:43] VITALS: BP 115/80; TEMP 98.1
== END 2017-08-18 14:45 | disposition home or self-care (01) ==
LOC: NEPC 08:09
DX: N30.00 Acute cystitis without hematuria (principal); K51.90 Ulcerative colitis, unspecified, without complications; F31.9 Bipolar disorder, unspecified; F17.210 Nicotine dependence, cigarettes, uncomplicated; Z88.5 Allergy status to narcotic agent; Z79.2 Long term (current) use of antibiotics; Z79.899 Other long term (current) drug therapy
CPT/HCPCS: 74176; 80053; 81001; 83690; 85025; 85610; 85730; 87086; 87491; 87591; 96361; 96365; 96375; 99284; J0696; J2270; J2405; J2920; J7030

== ENCOUNTER 2017-08-19 18:44 | Inpatient (IN) | payer OTHER ==
[~2017-08-19] VITALS: Ht 172.7 cm; Wt 58.3 kg
[~2017-08-19 18:44] MED LIST changes: +MACR100C2 PO
[2017-08-19 19:16] VITALS: BP 135/79; PULSE 115; RESP 18; TEMP 99; O2SAT 96
--- NOTE | 2017-08-19 20:11 | PD ---
HPI Chief Complaint: Abdominal Pain Time Seen by Provider: 20:04 Travel History International Travel<30 days: No Contact w/Intl Traveler<30days: No Traveled to known affect area: No History of Present Illness HPI 21-year-old male with fairly recent diagnosis of Crohn's colitis approximately 8 months ago, presents emergency department at the instruction of GI specialist Dr. Yeung. Patient was seen and evaluated yesterday here in the emergency department for acute on chronic abdominal pain, nausea, diarrhea, dehydration. Patient was discharged to follow-up with GI today. He did this. He has been on antibiotics and steroids and taking these as prescribed with only worsening in his symptoms. He is sent here for IV Remicade for colitis refractory to steroids. Patient reports continued abdominal pain mostly in the lower abdomen , worse in the left lower quadrant., diarrhea with justin red blood. States that he feels weak and tired. Denies any fever chills. He has no other symptoms to report. PFSH Past Medical History ADD: Yes ADHD: Yes Asthma: No Bipolar Disorder: Yes Anxiety: No Depression: No Cancer: No Cardiovascular Problems: No COPD: No Cerebrovascular Accident: No Diabetes: No Diminished Hearing: No Endocrine: No Gastrointestinal Disorders: Yes (crohns) GERD: No Genitourinary: No Hiatal Hernia: No Implanted Vascular Access Dvce: No Musculoskeletal: No Neurologic: Yes Psychiatric: Yes (bipolar, ADD, ADHD) Reproductive: No Respiratory: No Immunizations Current: Yes Migraines: Yes Seizures: No Sleep Apnea: No Thyroid Disease: No Ulcer: No PNEUMOCCOCAL Vaccine (Year): 3 Past Surgical History Abdominal Surgery: No AICD: No Arteriovenous Shunt: No Cardiac Surgery: No Endocrine Surgery: No Eye Surgery: No Genitourinary Surgery: No Gynecologic Surgery: No Insulin Pump: No Joint Replacement: No Neurologic Surgery: No Oral Surgery: No Pacemaker: No Thoracic Surgery: No Tympanostomy Tube: Yes Other Surgery: Yes (TUBES IN EARS) Social History Alcohol Use: No (Denies) Tobacco Use: Yes (2 PPD) Substance Use: Yes Allergies-Medications (Allergen,Severity, Reaction): Coded Allergies: oxycodone (Verified Allergy, Intermediate, Rash, 08/19/17) Reported Meds & Prescriptions Reported Meds & Active Scripts Active Macrobid (Nitrofurantoin Monohydrate Macrocrystals) 100 Mg Capsule 100 Mg PO BID 10 Days Tramadol (Tramadol HCl) 50 Mg Tab 100 Mg PO Q6H PRN 7 Days Asacol HD (Mesalamine) 800 Mg Tab 1,600 Mg PO TID 30 Days Swallow whole. Take on an empty stomach. Prednisone 10 Mg Tab 10 Mg PO DAILY 40 Days 4 pills daily for 10 days then 3 pills for 10 days then 2 pills for 10 days then 1 pill for 10 days Review of Systems Except as stated in HPI: all other systems reviewed are Neg Physical Exam Narrative GENERAL: Thin male patient, lying in bed in no acute distress SKIN: Focused skin assessment warm/dry. HEAD: Atraumatic. Normocephalic. EYES: Pupils equal and round. No scleral icterus. No injection or drainage. ENT: No nasal bleeding or discharge. Mucous membranes pink and and slightly dry looking. NECK: Trachea midline. No JVD. CARDIOVASCULAR: Tachycardic rate ate and rhythm. RESPIRATORY: No accessory muscle use. Clear to auscultation. Breath sounds equal bilaterally. GASTROINTESTINAL: Abdomen soft, nondistended. Tenderness elicited palpation along the lower abdomen. No guarding. No rebound tenderness. Hepatic and splenic margins not palpable. MUSCULOSKELETAL: No obvious deformities. No clubbing. No cyanosis. No edema. NEUROLOGICAL: Awake and alert. No obvious cranial nerve deficits. Motor grossly within normal limits. Normal speech. PSYCHIATRIC: Appropriate mood and affect; insight and judgment normal. Data Data Last Documented VS Vital Signs Date Time Temp Pulse Resp B/P (MAP) Pulse Ox O2 Delivery O2 Flow Rate FiO2 08/19/17 19:16 99.0 115 18 135/79 (97) 96 Orders Orders Complete Blood Count With Diff (08/19/17 20:04) Iv Access Insert/Monitor (08/19/17 20:04) Ecg Monitoring (08/19/17 20:04) Oximetry (08/19/17 20:04) Sodium Chloride 0.9% Flush (Ns Flush) (08/19/17 20:15) Comprehensive Metabolic Panel (08/19/17 20:13) Morphine Inj (Morphine Inj) (08/19/17 20:15) Ondansetron Inj (Zofran Inj) (08/19/17 20:15) Sodium Chlor 0.9% 1000 Ml Inj (Ns 1000 M (08/19/17 20:15) Morphine Inj (Morphine Inj) (08/19/17 20:24) Labs Laboratory Tests Test 08/19/17 20:05 White Blood Count 9.6 TH/MM3 Red Blood Count 4.82 MIL/MM3 Hemoglobin 13.1 GM/DL Hematocrit 38.7 % Mean Corpuscular Volume 80.3 FL Mean Corpuscular Hemoglobin 27.2 PG Mean Corpuscular Hemoglobin Concent 33.9 % Red Cell Distribution Width 13.9 % Platelet Count 501 TH/MM3 Mean Platelet Volume 6.1 FL Neutrophils (%) (Auto) 52.1 % Lymphocytes (%) (Auto) 31.0 % Monocytes (%) (Auto) 14.2 % Eosinophils (%) (Auto) 2.4 % Basophils (%) (Auto) 0.3 % Neutrophils # (Auto) 5.0 TH/MM3 Lymphocytes # (Auto) 3.0 TH/MM3 Monocytes # (Auto) 1.4 TH/MM3 Eosinophils # (Auto) 0.2 TH/MM3 Basophils # (Auto) 0.0 TH/MM3 CBC Comment DIFF FINAL Differential Comment Blood Urea Nitrogen 6 MG/DL Creatinine 0.62 MG/DL Random Glucose 101 MG/DL Total Protein 6.0 GM/DL Albumin 2.1 GM/DL Calcium Level 8.1 MG/DL Alkaline Phosphatase 59 U/L Aspartate Amino Transf (AST/SGOT) 7 U/L Alanine Aminotransferase (ALT/SGPT) 12 U/L Total Bilirubin 0.3 MG/DL Sodium Level 134 MEQ/L Potassium Level 3.5 MEQ/L Chloride Level 98 MEQ/L Carbon Dioxide Level 27.6 MEQ/L Anion Gap 8 MEQ/L Estimat Glomerular Filtration Rate 167 ML/MIN MDM Medical Decision Making Medical Screen Exam Complete: Yes Emergency Medical Condition: Yes Medical Record Reviewed: Yes Differential Diagnosis Colitis versus diverticulitis versus abscess versus electrolyte abnormality versus dehydration Narrative Course 21-year-old male presents to emergency department at the instruction of for admission for IV Remicade due to colitis refractory to steroids. Patient is then. He appears moderately dehydrated. He is tachycardic. He is afebrile. Basic lab work is completed. Laboratory Tests Test 08/19/17 20:05 White Blood Count 9.6 TH/MM3 Red Blood Count 4.82 MIL/MM3 Hemoglobin 13.1 GM/DL Hematocrit 38.7 % Mean Corpuscular Volume 80.3 FL Mean Corpuscular Hemoglobin 27.2 PG Mean Corpuscular Hemoglobin Concent 33.9 % Red Cell Distribution Width 13.9 % Platelet Count 501 TH/MM3 Mean Platelet Volume 6.1 FL Neutrophils (%) (Auto) 52.1 % Lymphocytes (%) (Auto) 31.0 % Monocytes (%) (Auto) 14.2 % Eosinophils (%) (Auto) 2.4 % Basophils (%) (Auto) 0.3 % Neutrophils # (Auto) 5.0 TH/MM3 Lymphocytes # (Auto) 3.0 TH/MM3 Monocytes # (Auto) 1.4 TH/MM3 Eosinophils # (Auto) 0.2 TH/MM3 Basophils # (Auto) 0.0 TH/MM3 CBC Comment DIFF FINAL Differential Comment Blood Urea Nitrogen 6 MG/DL Creatinine 0.62 MG/DL Random Glucose 101 MG/DL Total Protein 6.0 GM/DL Albumin 2.1 GM/DL Calcium Level 8.1 MG/DL Alkaline Phosphatase 59 U/L Aspartate Amino Transf (AST/SGOT) 7 U/L Alanine Aminotransferase (ALT/SGPT) 12 U/L Total Bilirubin 0.3 MG/DL Sodium Level 134 MEQ/L Potassium Level 3.5 MEQ/L Chloride Level 98 MEQ/L Carbon Dioxide Level 27.6 MEQ/L Anion Gap 8 MEQ/L Estimat Glomerular Filtration Rate 167 ML/MIN Condition: Stable Michaelle Neri August 19, 2017 20:11
[2017-08-19] MEDS ORDERED: SODIUM CHLORIDE 0.9% FLUSH 10 ML FLUSH IV FLUSH PRN ×2 (20:15→23:00)
[2017-08-19] MEDS ORDERED: ONDANSETRON HCL 4 MG/2 ML VIAL IV PUSH ONE (20:15)
[2017-08-19] MEDS ORDERED: MORPHINE SULFATE 2 MG/ML SYRINGE IV PUSH ONE ×2 (20:15→21:45)
[2017-08-19] MEDS ORDERED: SODIUM CHLOR 0.9% 1000 ML INJ 1,000 ML IV ONE ×2 (20:15→21:45)
[2017-08-19] MEDS ORDERED: MORPHINE SULFATE 4 MG/ML INJ ONE (20:24)
[2017-08-19 20:25] VITALS: RESP 18; O2SAT 100
[2017-08-19 20:39] LABS: BASOPHIL % 0.3 % (0.0-2.0); EOSINOPHIL # 0.2 TH/MM3 (0-0.4); EOSINOPHIL % 2.4 % (0.0-4.0); HEMATOCRIT 38.7 % (39.0-51.0); HEMOGLOBIN 13.1 GM/DL (13.0-17.0); MEAN CELL VOLUME 80.3 FL (80.0-100.0); MEAN CORPUSCULAR HEMOGLOBIN 27.2 PG (27.0-34.0); MEAN CORPUSCULAR HGB CONC 33.9 % (32.0-36.0); MEAN PLATELET VOLUME 6.1 FL (7.0-11.0); MONO % 14.2 % (0.0-8.0); MONOCYTE # 1.4 TH/MM3 (0-0.9); NEUT % 52.1 % (16.0-70.0); PLATELET COUNT 501 TH/MM3 (150-450); RED BLOOD COUNT 4.82 MIL/MM3 (4.50-5.90); RED CELL DISTRIBUTION WIDTH 13.9 % (11.6-17.2); WHITE BLOOD COUNT 9.6 TH/MM3 (4.0-11.0)
[2017-08-19 21:08] LABS: ALBUMIN 2.1 GM/DL (3.4-5.0); AST (GOT) 7 U/L (15-39); BICARBONATE 27.6 MEQ/L (21.0-32.0); BLOOD UREA NITROGEN 6 MG/DL (7-18); CALCIUM 8.1 MG/DL (8.5-10.1); CHLORIDE 98 MEQ/L (98-107); CREATININE 0.62 MG/DL (0.60-1.30); GLOMERULAR FILTRATION RATE 167 ML/MIN (>89); GLUCOSE,RANDOM 101 MG/DL (74-106); SODIUM (NA) 134 MEQ/L (136-145)
[2017-08-19 21:14] LABS: ALKALINE PHOSPHATASE 59 U/L (45-117); ALT (GPT) 12 U/L (9-52); TOTAL BILIRUBIN ADULT 0.3 MG/DL (0.2-1.0)
[2017-08-19] MEDS ORDERED: MORPHINE SULFATE 2 MG/ML SYRINGE IV PUSH PRN (23:00)
[2017-08-19] MEDS ORDERED: MAGNESIUM HYDROXIDE SUSP 30 ML CUP PO PRN (23:00)
[2017-08-19] MEDS ORDERED: ONDANSETRON HCL 4 MG/2 ML VIAL IVP PRN (23:00)
[2017-08-19] MEDS ORDERED: LACTULOSE SYRUP 20 GM/30 ML CUP PO PRN (23:00)
[2017-08-19] MEDS ORDERED: NALOXONE HCL 0.4 MG/ML AMP IV PUSH PRN (23:00)
[2017-08-19] MEDS ORDERED: SENNOSIDES 8.6 MG TAB PO PRN (23:00)
[2017-08-19] MEDS ORDERED: BISACODYL 10 MG SUPP RECTAL PRN (23:00)
--- NOTE | 2017-08-19 23:08 | HHI.HP ---
HPI Service CP Hospitalists Primary Care Physician No Primary Care Physician Admission Diagnosis colitis refractory to steroids; dehydration Chief Complaint: sent by GI to start on IV remacaide tomorrow Travel History International Travel<30 Days: No Contact w/Intl Traveler <30 Da: No Traveled to Known Affected Are: No History of Present Illness 21-year-old male with fairly recent diagnosis of Crohn's colitis approximately 8 months ago, presents emergency department at the instruction of GI specialist Dr. Yeung. Patient was seen and evaluated yesterday here in the emergency department for acute on chronic abdominal pain, nausea, diarrhea, dehydration. Patient was discharged to follow-up with GI today. He did this. He has been on antibiotics and steroids and taking these as prescribed with only worsening in his symptoms. He is sent here for IV Remicade for colitis refractory to steroids. Patient reports continued abdominal pain mostly in the lower abdomen , worse in the left lower quadrant., diarrhea with justin red blood. States that he feels weak and tired. Denies any fever chills. He has no other symptoms to report. Patient has had frequent admits and ER visits and has failed use of steroids and antibiotics and GI wants to start remacaide. [facility] Review of Systems Constitutional: COMPLAINS OF: Weight loss Gastrointestinal: COMPLAINS OF: Abdominal pain, Nausea, Vomiting, Anorexia Past Family Social History Past Medical History ADHD bipolar,crohn's Past Surgical History tube in ears Reported Medications Macrobid (Nitrofurantoin Monohydrate Macrocrystals) 100 Mg Capsule 100 Mg PO BID 10 Days Tramadol (Tramadol HCl) 50 Mg Tab 100 Mg PO Q6H PRN 7 Days Asacol HD (Mesalamine) 800 Mg Tab 1,600 Mg PO TID 30 Days Swallow whole. Take on an empty stomach. Prednisone 10 Mg Tab 10 Mg PO DAILY 40 Days 4 pills daily for 10 days then 3 pills for 10 days then 2 pills for 10 days then 1 pill for 10 days Allergies: Coded Allergies: oxycodone (Verified Allergy, Intermediate, Rash, 08/19/17) Social History smokes 1/2 ppd Physical Exam Vital Signs Vital Signs Date Time Temp Pulse Resp B/P (MAP) Pulse Ox O2 Delivery O2 Flow Rate FiO2 08/19/17 20:25 18 100 Room Air 08/19/17 19:16 99.0 115 18 135/79 (97) 96 Physical Exam GENERAL: This is a well-nourished, well-developed patient, in no apparent distress. SKIN: No rashes, ecchymoses or lesions. Cool and dry. HEAD: Atraumatic. Normocephalic. No temporal or scalp tenderness. EYES: Pupils equal round and reactive. Extraocular motions intact. No scleral icterus. No injection or drainage. ENT: Nose without bleeding, purulent drainage or septal hematoma. Throat without erythema, tonsillar hypertrophy or exudate. Uvula midline. Airway patent. NECK: Trachea midline. No JVD or lymphadenopathy. Supple, nontender, no meningeal signs. CARDIOVASCULAR: Regular rate and rhythm without murmurs, gallops, or rubs. RESPIRATORY: Clear to auscultation. Breath sounds equal bilaterally. No wheezes , rales, or rhonchi. GASTROINTESTINAL: Abdomen soft, -diffuse tender, nondistended. No hepato- splenomegaly, or palpable masses. No guarding. MUSCULOSKELETAL: Extremities without clubbing, cyanosis, or edema. No joint tenderness, effusion, or edema noted. No calf tenderness. Negative Homans sign bilaterally. NEUROLOGICAL: Awake and alert. Cranial nerves II through XII intact. Motor and sensory grossly within normal limits. Five out of 5 muscle strength in all muscle groups. Normal speech. Laboratory Laboratory Tests Test 08/19/17 20:05 White Blood Count 9.6 Red Blood Count 4.82 Hemoglobin 13.1 Hematocrit 38.7 Mean Corpuscular Volume 80.3 Mean Corpuscular Hemoglobin 27.2 Mean Corpuscular Hemoglobin Concent 33.9 Red Cell Distribution Width 13.9 Platelet Count 501 Mean Platelet Volume 6.1 Neutrophils (%) (Auto) 52.1 Lymphocytes (%) (Auto) 31.0 Monocytes (%) (Auto) 14.2 Eosinophils (%) (Auto) 2.4 Basophils (%) (Auto) 0.3 Neutrophils # (Auto) 5.0 Lymphocytes # (Auto) 3.0 Monocytes # (Auto) 1.4 Eosinophils # (Auto) 0.2 Basophils # (Auto) 0.0 CBC Comment DIFF FINAL Differential Comment Blood Urea Nitrogen 6 Creatinine 0.62 Random Glucose 101 Total Protein 6.0 Albumin 2.1 Calcium Level 8.1 Alkaline Phosphatase 59 Aspartate Amino Transf (AST/SGOT) 7 Alanine Aminotransferase (ALT/SGPT) 12 Total Bilirubin 0.3 Sodium Level 134 Potassium Level 3.5 Chloride Level 98 Carbon Dioxide Level 27.6 Anion Gap 8 Estimat Glomerular Filtration Rate 167 Result Diagram: 08/19/17200408/19/172004 Course in er started on pain meds and iv fluid Caprini VTE Risk Assessment Caprini VTE Risk Assessment: No/Low Risk (score <= 1) Caprini Risk Assessment Model Point Value = 1 Point Value = 2 Point Value = 3 Point Value = 5 Age 41-60 Minor surgery BMI > 25 kg/m2 Swollen legs Varicose veins or History of unexplained or recurrent spontaneous Oral contraceptives or hormone replacement Sepsis (< 1 month) Serious lung disease, including pneumonia (< 1 month) Abnormal pulmonary function Acute myocardial infarction Congestive heart failure (< 1 month) History of inflammatory bowel disease Medical patient at bed rest Age 61-74 Arthroscopic surgery Major open surgery (> 45 min) Laparoscopic surgery (> 45 min) Malignancy Confined to bed (> 72 hours) Immobilizing plaster cast Central venous access Age >= 75 History of VTE Family history of VTE Factor V Leiden Prothrombin [id number] Lupus anticoagulant Anticardiolipin antibodies Elevated serum homocysteine Heparin-induced thrombocytopenia Other congenital or acquired thrombophilia Stroke (< 1 month) Elective arthroplasty Hip, pelvis, or leg fracture Acute spinal cord injury (< 1 month) Prophylaxis Regimen Total Risk Factor Score Risk Level Prophylaxis Regimen 0-1 Low Early ambulation 2 Moderate Order ONE of the following: *Sequential Compression Device (SCD) *Heparin 5000 units SQ BID 3-4 Higher Order ONE of the following medications: *Heparin 5000 units SQ TID *Enoxaparin/Lovenox 40 mg SQ daily (WT < 150 kg, CrCl > 30 mL/min) *Enoxaparin/Lovenox 30 mg SQ daily (WT < 150 kg, CrCl > 10-29 mL/min) *Enoxaparin/Lovenox 30 mg SQ BID (WT < 150 kg, CrCl > 30 mL/min) AND/OR *Sequential Compression Device (SCD) 5 or more Highest Order ONE of the following medications: *Heparin 5000 units SQ TID (Preferred with Epidurals) *Enoxaparin/Lovenox 40 mg SQ daily (WT < 150 kg, CrCl > 30 mL/min) *Enoxaparin/Lovenox 30 mg SQ daily (WT < 150 kg, CrCl > 10-29 mL/min) *Enoxaparin/Lovenox 30 mg SQ BID (WT < 150 kg, CrCl > 30 mL/min) AND *Sequential Compression Device (SCD) Assessment and Plan Problem List: (1) Colitis ICD Codes: K52.9 - Colitis Status: Acute Plan: failed out patient treatment admit plan as per GI for Remicade IVwill continue IV pain med ,zofran and was on macrobid continue for now IV steroids pending GI evaluation Assessment and Plan further plan as case develops Code Status full Discussed Condition With patient Physician Certification 2 Midnight Certification Type: Admission for Inpatient Services Order for Inpatient Services The services are ordered in accordance with Medicare regulations or non- Medicare payer requirements, as applicable. In the case of services not specified as inpatient-only, they are appropriately provided as inpatient services in accordance with the 2-midnight benchmark. Estimated LOS (days): 3 3 days is the estimated time the patient will need to remain in the hospital, assuming treatment plan goals are met and no additional complications. Post-Hospital Plan: Not yet determined Kenney Day MD August 19, 2017 23:08
[2017-08-19] MEDS: MORPHINE SULFATE 4 MG/ML INJ IV PRN (23:46)
[2017-08-20] VITALS: BP 123/70; PULSE 68; RESP 16; TEMP 98.1; O2SAT 99
[2017-08-20] MEDS: SODIUM CHLOR 0.45% 1000 ML INJ 1,000 ML IV SCH ×2 (01:26→14:16)
[2017-08-20] MEDS: MORPHINE SULFATE 4 MG/ML INJ IV PRN ×6 (03:52→21:36)
[2017-08-20 04:30] VITALS: BP 117/66; PULSE 76; RESP 16; TEMP 98.2; O2SAT 99
[2017-08-20 07:13] LABS: AUTOMATED NEUTROPHIL # 5.8 TH/MM3 (1.8-7.7); BASOPHIL % 0.2 % (0.0-2.0); EOSINOPHIL # 0.3 TH/MM3 (0-0.4); EOSINOPHIL % 2.9 % (0.0-4.0); HEMOGLOBIN 12.2 GM/DL (13.0-17.0); LYMPH % 23.7 % (9.0-44.0); LYMPHOCYTE # 2.3 TH/MM3 (1.0-4.8); MEAN CELL VOLUME 81.5 FL (80.0-100.0); MEAN CORPUSCULAR HEMOGLOBIN 26.9 PG (27.0-34.0); MEAN PLATELET VOLUME 6.5 FL (7.0-11.0); MONO % 12.9 % (0.0-8.0); MONOCYTE # 1.2 TH/MM3 (0-0.9); NEUT % 60.3 % (16.0-70.0); PLATELET COUNT 482 TH/MM3 (150-450); RED BLOOD COUNT 4.54 MIL/MM3 (4.50-5.90); WHITE BLOOD COUNT 9.6 TH/MM3 (4.0-11.0)
[2017-08-20 07:29] LABS: ALBUMIN 1.9 GM/DL (3.4-5.0); ALT (GPT) 13 U/L (9-52); AST (GOT) 6 U/L (15-39); BICARBONATE 29.2 MEQ/L (21.0-32.0); BLOOD UREA NITROGEN 5 MG/DL (7-18); CHLORIDE 103 MEQ/L (98-107); CREATININE 0.47 MG/DL (0.60-1.30); GLOMERULAR FILTRATION RATE 230 ML/MIN (>89); GLUCOSE,RANDOM 76 MG/DL (74-106); SODIUM (NA) 138 MEQ/L (136-145)
[2017-08-20 07:31] LABS: ALKALINE PHOSPHATASE 52 U/L (45-117); TOTAL BILIRUBIN ADULT 0.3 MG/DL (0.2-1.0); TOTAL PROTEIN 5.3 GM/DL (6.4-8.2)
[2017-08-20 08:00] VITALS: BP 134/77; PULSE 57; RESP 18; TEMP 97.3; O2SAT 99
[2017-08-20] MEDS: methylPREDNISolone SOD SUCC 40 MG/1 ML VIAL IV PUSH SCH ×2 (08:01→20:59)
[2017-08-20] MEDS: SODIUM CHLORIDE 0.9% FLUSH 10 ML FLUSH IV FLUSH SCH ×2 (08:03→21:00)
[2017-08-20] MEDS: MESALAMINE HD 800 MG DELAYED RELEASE TAB PO SCH ×3 (08:06→17:30)
[2017-08-20] MEDS ORDERED: NITROFURANTOIN MONOHYD MACROCR 100 MG CAP PO SCH (09:00)
[2017-08-20] MEDS ORDERED: DOCUSATE SODIUM 50 MG/SENNA 8.6 MG TAB PO SCH (09:00)
--- NOTE | 2017-08-20 10:31 | HHI.PR ---
Subjective Remarks Pt has had three loose BMs today, two of them were bloody He reports continued abdominal pain Afebrile Objective Vitals Vital Signs Date Time Temp Pulse Resp B/P (MAP) Pulse Ox O2 Delivery O2 Flow Rate FiO2 08/20/17 08:00 97.3 57 18 134/77 (96) 99 08/20/17 08:00 18 08/20/17 04:30 98.2 76 16 117/66 (83) 99 08/20/17 00:00 98.1 68 16 123/70 (87) 99 08/19/17 20:25 18 100 Room Air 08/19/17 19:16 99.0 115 18 135/79 (97) 96 Result Diagram: 08/20/17 0610 08/20/17 0610 Other Results Laboratory Tests Test 08/19/17 20:05 08/20/17 06:10 White Blood Count 9.6 TH/MM3 9.6 TH/MM3 Red Blood Count 4.82 MIL/MM3 4.54 MIL/MM3 Hemoglobin 13.1 GM/DL 12.2 GM/DL Hematocrit 38.7 % 37.0 % Mean Corpuscular Volume 80.3 FL 81.5 FL Mean Corpuscular Hemoglobin 27.2 PG 26.9 PG Mean Corpuscular Hemoglobin Concent 33.9 % 33.0 % Red Cell Distribution Width 13.9 % 14.0 % Platelet Count 501 TH/MM3 482 TH/MM3 Mean Platelet Volume 6.1 FL 6.5 FL Neutrophils (%) (Auto) 52.1 % 60.3 % Lymphocytes (%) (Auto) 31.0 % 23.7 % Monocytes (%) (Auto) 14.2 % 12.9 % Eosinophils (%) (Auto) 2.4 % 2.9 % Basophils (%) (Auto) 0.3 % 0.2 % Neutrophils # (Auto) 5.0 TH/MM3 5.8 TH/MM3 Lymphocytes # (Auto) 3.0 TH/MM3 2.3 TH/MM3 Monocytes # (Auto) 1.4 TH/MM3 1.2 TH/MM3 Eosinophils # (Auto) 0.2 TH/MM3 0.3 TH/MM3 Basophils # (Auto) 0.0 TH/MM3 0.0 TH/MM3 CBC Comment DIFF FINAL DIFF FINAL Differential Comment Blood Urea Nitrogen 6 MG/DL 5 MG/DL Creatinine 0.62 MG/DL 0.47 MG/DL Random Glucose 101 MG/DL 76 MG/DL Total Protein 6.0 GM/DL 5.3 GM/DL Albumin 2.1 GM/DL 1.9 GM/DL Calcium Level 8.1 MG/DL 8.0 MG/DL Alkaline Phosphatase 59 U/L 52 U/L Aspartate Amino Transf (AST/SGOT) 7 U/L 6 U/L Alanine Aminotransferase (ALT/SGPT) 12 U/L 13 U/L Total Bilirubin 0.3 MG/DL 0.3 MG/DL Sodium Level 134 MEQ/L 138 MEQ/L Potassium Level 3.5 MEQ/L 3.9 MEQ/L Chloride Level 98 MEQ/L 103 MEQ/L Carbon Dioxide Level 27.6 MEQ/L 29.2 MEQ/L Anion Gap 8 MEQ/L 6 MEQ/L Estimat Glomerular Filtration Rate 167 ML/MIN 230 ML/MIN A/P Problem List: (1) Colitis ICD Codes: K52.9 - Colitis Status: Acute Plan: - Pt is a 21 y/o WM with Ulcerative colitis who has had multiple recent hospital admissions and ER visit with complaint of abdominal pain, nausea/vomiting, weight loss, and diarrhea. - Pt recently had a colonoscopy on 08/01/17 --> Diffuse abnormal mucosa was found throughout the entire examined colon, mucosa was congested, edematous, erythematous, ulcerated, friable, and had deep and superficial ulcers. Pathology most consistent with ulcerative colitis. - Pt was recently admitted to [facility] from 08/09/17 to 08/11/17 with vomiting, bloody diarrhea and abdominal pain. He was admitted and hydrated with IV fluids. Placed on Solu-Medrol IV and maintained on his mesalamine. He had clinical improvement and was discharged on Mesalamine 1600mg TID and a Prednisone taper. - He presented back to the ED at [facility] [place] on 08/18/17 with complaints of acute on chronic abdominal pain and bloody diarrhea. Patient also reports that he has been having dysuria with urinary urgency and frequency. - His H/H was stable. - CT abdomen and pelvis W/O IV contrast (08/18) --> Mild circumferential wall thickening of the entire transverse colon and likely a portion of the distal ascending and proximal descending colon. No significant surrounding inflammation is present. No other acute finding is identified. - He was seen by GI while in the ED and appt was made for him to followup outpt with Dr. Yeung on 08/19/17. The ER physician also prescribed Macrobid 100mg BID for possible UTI. Urine culture reviewed and was negative. - Pt was seen by Dr. Yeung yesterday and was sent to the ED as it was felt that he had failed treatment with Steroids and Mesalamine for his UC and was being recommended for Remicade. - Pt was started on Solu-Medrol 40mg Q12H and Asacol 1600mg TID at admission - Check stool for enteric path and C. diff - GI consulted - IVF - Pain control PRN - Supportive care Assessment and Plan Patient examined. Assessment and plan formulated with Tricia CUMMINGS-C. I agree with the above. Pt c/o several bloody loose BMs today. Pt also c/o continued abdominal pain and poor appetite. Case d/w GI, Dr. Toussaint. Continue IV steroids and asacol. Pt undergoing w/u for possible IV remicade Tricia Rich August 20, 2017 10:31 Luis Melendez DO August 20, 2017 23:45
--- NOTE | 2017-08-20 11:18 | PD.CONS ---
HPI History of Present Illness This is a 21 year old male with Crohn's who was sent to ER by Dr Yeung for abd pain, diarrhea, n/v. He was diagnosed with Crohn's 8.5 months ago. He is c /o constant diffuse abd pain, diarrhea with worsening bleeding, intermittent nausea and nonbloody emesis. Smoking cigarettes makes his sx worse. He c/o that is so so weak his mother has to help him with ADLs. He was recently admitted and evaluated by our service and discharged with followup appt with GI. CT 08/18/17 showed colitis, suggestive IBD. He had colonoscopy 08/01/17 revealing diffuse abnormal mucosa throughout colon, mucosa congested, edematous , erythematous, ulcerated, friable, deep & superficial ulcers; path consistent with UC. Pt was given asacol and prednisone taper after colonoscopy. (Radha Nixon) PFSH Past Medical History Crohn's ADHD bipolar Past Surgical History PE tubes (Radha Nixon) Coded Allergies: oxycodone (Verified Allergy, Intermediate, Rash, 08/19/17) Family History crohn's - father Social History smokes 1/2ppd (Radha Nixon) Review of Systems Constitutional: COMPLAINS OF: Weight loss, DENIES: Fever Endocrine: DENIES: Polydipsia Eyes: DENIES: Blurred vision Ears, nose, mouth, throat: DENIES: Hearing loss Respiratory: DENIES: Cough Cardiovascular: DENIES: Chest pain Gastrointestinal: COMPLAINS OF: Abdominal pain, Bloody stools, Diarrhea, Nausea , Vomiting, DENIES: Black stools, Hematemesis Genitourinary: COMPLAINS OF: Dysuria Musculoskeletal: DENIES: Joint Swelling Integumentary: DENIES: Abnormal pigmentation Hematologic/lymphatic: DENIES: Bruising Immunologic/allergic: DENIES: Eczema Neurologic: DENIES: Abnormal gait Psychiatric: DENIES: Confusion (Radha Nixon) GI Exam Vitals I&O Vital Signs Date Time Temp Pulse Resp B/P (MAP) Pulse Ox O2 Delivery O2 Flow Rate FiO2 08/20/17 11:00 18 08/20/17 08:00 97.3 57 18 134/77 (96) 99 08/20/17 04:30 98.2 76 16 117/66 (83) 99 08/20/17 00:00 98.1 68 16 123/70 (87) 99 08/19/17 20:25 18 100 Room Air 08/19/17 19:16 99.0 115 18 135/79 (97) 96 I/O 08/19/17 08/19/17 08/19/17 08/20/17 08/20/17 08/20/17 07:00 15:00 23:00 07:00 15:00 23:00 Intake Total 480 ml Balance 480 ml Intake Oral 480 ml # Voids 2 # Bowel Movements 0 Laboratory Test 08/19/17 20:05 08/20/17 06:10 08/20/17 11:00 White Blood Count 9.6 TH/MM3 9.6 TH/MM3 Red Blood Count 4.82 MIL/MM3 4.54 MIL/MM3 Hemoglobin 13.1 GM/DL 12.2 GM/DL Hematocrit 38.7 % 37.0 % Mean Corpuscular Volume 80.3 FL 81.5 FL Mean Corpuscular Hemoglobin 27.2 PG 26.9 PG Mean Corpuscular Hemoglobin Concent 33.9 % 33.0 % Red Cell Distribution Width 13.9 % 14.0 % Platelet Count 501 TH/MM3 482 TH/MM3 Mean Platelet Volume 6.1 FL 6.5 FL Neutrophils (%) (Auto) 52.1 % 60.3 % Lymphocytes (%) (Auto) 31.0 % 23.7 % Monocytes (%) (Auto) 14.2 % 12.9 % Eosinophils (%) (Auto) 2.4 % 2.9 % Basophils (%) (Auto) 0.3 % 0.2 % Neutrophils # (Auto) 5.0 TH/MM3 5.8 TH/MM3 Lymphocytes # (Auto) 3.0 TH/MM3 2.3 TH/MM3 Monocytes # (Auto) 1.4 TH/MM3 1.2 TH/MM3 Eosinophils # (Auto) 0.2 TH/MM3 0.3 TH/MM3 Basophils # (Auto) 0.0 TH/MM3 0.0 TH/MM3 CBC Comment DIFF FINAL DIFF FINAL Differential Comment Blood Urea Nitrogen 6 MG/DL 5 MG/DL Creatinine 0.62 MG/DL 0.47 MG/DL Random Glucose 101 MG/DL 76 MG/DL Total Protein 6.0 GM/DL 5.3 GM/DL Albumin 2.1 GM/DL 1.9 GM/DL Calcium Level 8.1 MG/DL 8.0 MG/DL Alkaline Phosphatase 59 U/L 52 U/L Aspartate Amino Transf (AST/SGOT) 7 U/L 6 U/L Alanine Aminotransferase (ALT/SGPT) 12 U/L 13 U/L Total Bilirubin 0.3 MG/DL 0.3 MG/DL Sodium Level 134 MEQ/L 138 MEQ/L Potassium Level 3.5 MEQ/L 3.9 MEQ/L Chloride Level 98 MEQ/L 103 MEQ/L Carbon Dioxide Level 27.6 MEQ/L 29.2 MEQ/L Anion Gap 8 MEQ/L 6 MEQ/L Estimat Glomerular Filtration Rate 167 ML/MIN 230 ML/MIN Physical Examination HEENT: PERRL; normocephalic; atraumatic; no jaundice. CHEST: wheezes left side CARDIAC: RRR ABDOMEN: Soft, nondistended, diffuse TTP; no hepatosplenomegaly; bowel sounds are present in all four quadrants. EXTREMITIES: No clubbing, cyanosis, or edema. SKIN: Normal; no rash; no jaundice. SENIOR CLINICAL RESEARCH ASSOCIATE: No focal deficits; alert and oriented times three. (Radha Nixon) Assessment and Plan Plan ASSESSMENT - abd pain, n/v, diarrhea with blood - IBD. asacol and prednisone have not helped. colonoscopy 08/01/17 revealing diffuse abnormal mucosa throughout colon, mucosa congested, edematous, erythematous , ulcerated, friable, deep & superficial ulcers; path consistent with UC. ?remicade PLAN - TB test - hep panel - continue steroids - continue asacol - clear liquids - further recs to follow pt seen by myself and Dr Toussaint and this note is on his behalf (Radha Nixon) Physician Comments Seen and examined with KITCHEN HAND, refractory IBD. Protocol initiated for Remicaide. Continue Asacol and solumederol. Discussed with Dr. Melendez. Thankyou (Rigoberto Toussaint MD) Radha Nixon August 20, 2017 11:18 Rigoberto Toussaint MD August 20, 2017 17:20
[2017-08-20 12:00] VITALS: BP 139/69; PULSE 63; RESP 18; TEMP 97.9; O2SAT 98
[2017-08-20 16:00] VITALS: BP 152/87; PULSE 80; RESP 18; TEMP 97.7; O2SAT 99
[2017-08-20] MEDS: ACETAMINOPHEN/HYDROcodone 325 MG/5 MG TAB PO PRN ×2 (16:47→20:58)
[2017-08-20 20:10] VITALS: BP 139/76; PULSE 61; RESP 16; TEMP 98.1; O2SAT 100
[2017-08-21 00:32] VITALS: BP 122/74; PULSE 77; RESP 16; TEMP 98.1; O2SAT 98
[2017-08-21] MEDS: TEMAZEPAM 15 MG CAP PO PRN (00:37)
[2017-08-21] MEDS: MORPHINE SULFATE 4 MG/ML INJ IV PRN ×6 (00:38→22:43)
[2017-08-21] MEDS: ACETAMINOPHEN/HYDROcodone 325 MG/5 MG TAB PO PRN ×4 (05:41→20:38)
[2017-08-21] MEDS: SODIUM CHLOR 0.45% 1000 ML INJ 1,000 ML IV SCH ×2 (05:43→19:41)
[2017-08-21 08:00] VITALS: BP 132/71; PULSE 62; RESP 18; TEMP 97.4; O2SAT 98
[2017-08-21] MEDS: SODIUM CHLORIDE 0.9% FLUSH 10 ML FLUSH IV FLUSH SCH (09:00)
[2017-08-21] MEDS: MESALAMINE HD 800 MG DELAYED RELEASE TAB PO SCH ×2 (09:14→12:30)
[2017-08-21] MEDS: methylPREDNISolone SOD SUCC 40 MG/1 ML VIAL IV PUSH SCH ×2 (09:14→22:43)
[2017-08-21 12:00] VITALS: BP 141/78; PULSE 71; RESP 18; TEMP 98.2; O2SAT 99
--- NOTE | 2017-08-21 12:09 | HHI.PR ---
Subjective Remarks Patient has apprehension regarding eating. Patient had abdominal pain after eating yesterday reports 2-3 loose BMs today no blood present Objective Vitals Vital Signs Date Time Temp Pulse Resp B/P (MAP) Pulse Ox O2 Delivery O2 Flow Rate FiO2 08/21/17 08:00 97.4 62 18 132/71 (91) 98 08/21/17 00:32 98.1 77 16 122/74 (90) 98 08/20/17 20:10 98.1 61 16 139/76 (97) 100 08/20/17 17:36 18 08/20/17 17:36 18 08/20/17 16:00 97.7 80 18 152/87 (108) 99 Result Diagram: 08/20/17 0610 08/20/17 0610 Other Results Laboratory Tests Test 08/19/17 20:05 08/20/17 06:10 08/20/17 11:00 08/21/17 06:51 White Blood Count 9.6 TH/MM3 9.6 TH/MM3 Red Blood Count 4.82 MIL/MM3 4.54 MIL/MM3 Hemoglobin 13.1 GM/DL 12.2 GM/DL Hematocrit 38.7 % 37.0 % Mean Corpuscular Volume 80.3 FL 81.5 FL Mean Corpuscular Hemoglobin 27.2 PG 26.9 PG Mean Corpuscular Hemoglobin Concent 33.9 % 33.0 % Red Cell Distribution Width 13.9 % 14.0 % Platelet Count 501 TH/MM3 482 TH/MM3 Mean Platelet Volume 6.1 FL 6.5 FL Neutrophils (%) (Auto) 52.1 % 60.3 % Lymphocytes (%) (Auto) 31.0 % 23.7 % Monocytes (%) (Auto) 14.2 % 12.9 % Eosinophils (%) (Auto) 2.4 % 2.9 % Basophils (%) (Auto) 0.3 % 0.2 % Neutrophils # (Auto) 5.0 TH/MM3 5.8 TH/MM3 Lymphocytes # (Auto) 3.0 TH/MM3 2.3 TH/MM3 Monocytes # (Auto) 1.4 TH/MM3 1.2 TH/MM3 Eosinophils # (Auto) 0.2 TH/MM3 0.3 TH/MM3 Basophils # (Auto) 0.0 TH/MM3 0.0 TH/MM3 CBC Comment DIFF FINAL DIFF FINAL Differential Comment Blood Urea Nitrogen 6 MG/DL 5 MG/DL Creatinine 0.62 MG/DL 0.47 MG/DL Random Glucose 101 MG/DL 76 MG/DL Total Protein 6.0 GM/DL 5.3 GM/DL Albumin 2.1 GM/DL 1.9 GM/DL Calcium Level 8.1 MG/DL 8.0 MG/DL Alkaline Phosphatase 59 U/L 52 U/L Aspartate Amino Transf (AST/SGOT) 7 U/L 6 U/L Alanine Aminotransferase (ALT/SGPT) 12 U/L 13 U/L Total Bilirubin 0.3 MG/DL 0.3 MG/DL Sodium Level 134 MEQ/L 138 MEQ/L Potassium Level 3.5 MEQ/L 3.9 MEQ/L Chloride Level 98 MEQ/L 103 MEQ/L Carbon Dioxide Level 27.6 MEQ/L 29.2 MEQ/L Anion Gap 8 MEQ/L 6 MEQ/L Estimat Glomerular Filtration Rate 167 ML/MIN 230 ML/MIN Stool C. difficile Toxin (PCR) NEGATIVE Stl C. difficile Toxin Epiderm 027 PRESUMPTIVE NEGATIVE Hepatitis A IgM Antibody NONREACTIVE Hepatitis B Surface Antigen NONREACTIVE Hepatitis B Core IgM Antibody NONREACTIVE Hepatitis C IgG Antibody NONREACTIVE Objective Remarks GENERAL: This is a thin, 21 year old male patient, in no apparent distress. CARDIOVASCULAR: Regular rate and rhythm RESPIRATORY: Clear to auscultation. Breath sounds equal bilaterally. GASTROINTESTINAL: Abdomen soft, non-tender, nondistended. Normal active bowel sounds MUSCULOSKELETAL: Extremities without clubbing, cyanosis, or edema. NEURO: Alert & Oriented x4 to person, place, time, situation. Moves all ext x4 A/P Problem List: (1) Colitis ICD Codes: K52.9 - Colitis Status: Acute Plan: - Pt is a 21 y/o WM with Ulcerative colitis who has had multiple recent hospital admissions and ER visit with complaint of abdominal pain, nausea/vomiting, weight loss, and diarrhea. - Pt recently had a colonoscopy on 08/01/17 --> Diffuse abnormal mucosa was found throughout the entire examined colon, mucosa was congested, edematous, erythematous, ulcerated, friable, and had deep and superficial ulcers. Pathology most consistent with ulcerative colitis. - Pt was recently admitted to [facility] [place] from 08/09/17 to 08/11/17 with vomiting, bloody diarrhea and abdominal pain. He was admitted and hydrated with IV fluids. Placed on Solu-Medrol IV and maintained on his mesalamine. He had clinical improvement and was discharged on Mesalamine 1600mg TID and a Prednisone taper. - He presented back to the ED at [facility] [place] on 08/18/17 with complaints of acute on chronic abdominal pain and bloody diarrhea. Patient also reports that he has been having dysuria with urinary urgency and frequency. - His H/H was stable. - CT abdomen and pelvis W/O IV contrast (08/18) --> Mild circumferential wall thickening of the entire transverse colon and likely a portion of the distal ascending and proximal descending colon. No significant surrounding inflammation is present. No other acute finding is identified. - He was seen by GI while in the ED and appt was made for him to followup outpt with Dr. Yeung on 08/19/17. The ER physician also prescribed Macrobid 100mg BID for possible UTI. Urine culture reviewed and was negative. - Pt was seen by Dr. Yeung yesterday and was sent to the ED as it was felt that he had failed treatment with Steroids and Mesalamine for his UC and was being recommended for Remicade. - Pt was started on Solu-Medrol 40mg Q12H and Asacol 1600mg TID at admission - Check stool for enteric path pending - stool for C. diff neg - GI consulted, appreciate input Protocol initiated for Remicade Per GI TB test (pending) hep panel non reactive Hep A, B and C continue steroids continue asacol clear liquids - IVF - Pain control PRN - Supportive care Assessment and Plan Patient examined. Assessment and plan formulated with Heidi Clifton PA-C. I agree with the above. Heidi Clifton August 21, 2017 12:09 Luis Melendez DO August 24, 2017 15:28
--- NOTE | 2017-08-21 13:14 | HHI.GIFU ---
Subjective Remarks Pt resting in bed. some improvement in abd pain today. (Radha Nixon) Objective Vitals I&O Vital Signs Date Time Temp Pulse Resp B/P (MAP) Pulse Ox O2 Delivery O2 Flow Rate FiO2 08/21/17 12:00 98.2 71 18 141/78 (99) 99 08/21/17 08:00 97.4 62 18 132/71 (91) 98 08/21/17 00:32 98.1 77 16 122/74 (90) 98 08/20/17 20:10 98.1 61 16 139/76 (97) 100 08/20/17 17:36 18 08/20/17 17:36 18 08/20/17 16:00 97.7 80 18 152/87 (108) 99 I/O 08/20/17 08/20/17 08/20/17 08/21/17 08/21/17 08/21/17 07:00 15:00 23:00 07:00 15:00 23:00 Intake Total 480 ml 1600 ml 279 ml 720 ml Balance 480 ml 1600 ml 279 ml 720 ml Intake Oral 480 ml 600 ml 720 ml IV Total 1000 ml 279 ml # Voids 2 3 3 # Bowel Movements 0 0 Laboratory Laboratory Tests Test 08/21/17 06:51 Hepatitis A IgM Antibody NONREACTIVE Hepatitis B Surface Antigen NONREACTIVE Hepatitis B Core IgM Antibody NONREACTIVE Hepatitis C IgG Antibody NONREACTIVE Date/Time Source Procedure Growth Status 08/20/17 11:00 Stool Stool Pending Received Physical Exam HEENT: PERRL; normocephalic; atraumatic; no jaundice. CHEST: CTA CARDIAC: RRR ABDOMEN: Soft, nondistended, diffuse TTP; no hepatosplenomegaly; bowel sounds are present in all four quadrants. EXTREMITIES: No clubbing, cyanosis, or edema. SKIN: Normal; no rash; no jaundice. BANDSAW OPERATOR: No focal deficits; alert and oriented times three. (Radha Nixon) Assessment and Plan Plan ASSESSMENT - abd pain, n/v, diarrhea with blood - IBD. asacol and prednisone have not helped. colonoscopy 08/01/17 revealing diffuse abnormal mucosa throughout colon, mucosa congested, edematous, erythematous , ulcerated, friable, deep & superficial ulcers; path consistent with UC. ?remicade 5/9/18 hep panel neg. TB pending. mild improvement today. PLAN - await TB test - hep panel - continue steroids - continue asacol - clear liquids - remicade protocol pt seen by myself and Dr Toussaint and this note is on his behalf (Radha Nixon) Physician Comments Seen and examined with DATA ANALYST REPORT WRITER< improving on solumederol. Can dc home after first dose of remicaide hopefully this week. Diet as tolerated. (Rigoberto Toussaint MD) Radha Nixon August 21, 2017 13:14 Rigoberto Toussaint MD August 21, 2017 14:36
[2017-08-21 16:00] VITALS: BP 142/82; PULSE 68; RESP 18; TEMP 97.4; O2SAT 98
[2017-08-21 20:00] VITALS: BP 148/104; PULSE 80; RESP 22; TEMP 97.1; O2SAT 99
[2017-08-22] VITALS: BP 142/80; PULSE 76; RESP 20; TEMP 97.8; O2SAT 98
[2017-08-22] MEDS: TEMAZEPAM 15 MG CAP PO PRN ×2 (00:47→23:46)
[2017-08-22] MEDS: ACETAMINOPHEN/HYDROcodone 325 MG/5 MG TAB PO PRN ×5 (00:48→21:36)
[2017-08-22] MEDS: MESALAMINE HD 800 MG DELAYED RELEASE TAB PO SCH ×4 (00:52→17:23)
[2017-08-22] MEDS: MORPHINE SULFATE 4 MG/ML INJ IV PRN ×6 (04:51→23:46)
[2017-08-22 08:00] VITALS: BP 144/87; PULSE 65; RESP 16; TEMP 97.6; O2SAT 99
[2017-08-22] MEDS: methylPREDNISolone SOD SUCC 40 MG/1 ML VIAL IV PUSH SCH ×2 (09:06→20:31)
[2017-08-22] MEDS: SODIUM CHLORIDE 0.9% FLUSH 10 ML FLUSH IV FLUSH SCH ×2 (09:06→21:00)
[2017-08-22] MEDS: SODIUM CHLOR 0.45% 1000 ML INJ 1,000 ML IV SCH ×2 (09:24→18:48)
--- NOTE | 2017-08-22 13:52 | HHI.GIFU ---
Subjective Remarks Pt resting in bed In no apparent distress Continued abdominal pain Denies nausea, vomiting Tolerating PO, would like his diet advanced Still having watery BMs (Shae Case) Objective Vitals I&O Vital Signs Date Time Temp Pulse Resp B/P (MAP) Pulse Ox O2 Delivery O2 Flow Rate FiO2 08/22/17 08:52 20 08/22/17 08:00 97.6 65 16 144/87 (106) 99 08/22/17 00:00 97.8 76 20 142/80 (100) 98 08/21/17 20:00 97.1 80 22 148/104 (119) 99 08/21/17 16:00 97.4 68 18 142/82 (102) 98 I/O 08/21/17 08/21/17 08/21/17 08/22/17 08/22/17 08/22/17 07:00 15:00 23:00 07:00 15:00 23:00 Intake Total 720 ml 500 ml 750 ml Balance 720 ml 500 ml 750 ml Intake Oral 720 ml 500 ml 750 ml # Voids 3 5 6 # Bowel Movements 0 6 Laboratory Date/Time Source Procedure Growth Status 08/20/17 11:00 Stool Stool - Final NO ENTERIC PATHOGENS DETECTED BY PCR... Complete Physical Exam HEENT: Normocephalic; atraumatic; no jaundice. CHEST: Even/unlabored CARDIAC: RRR ABDOMEN: Soft, nondistended, nontender; bowel sounds active EXTREMITIES: No clubbing, cyanosis, or edema. SKIN: Normal; no rash; no jaundice. HABILITATION TRAINING SPECIALIST: No focal deficits; alert and oriented times three. (Shae Case) Assessment and Plan Plan ASSESSMENT - Ulcerative colitis- multiple recent admissions for complaints of abdominal pain, nausea, vomiting, diarrhea- last seen by our service at [facility] last week. Advised to continue Mesalamine and restarted on Prednisone taper with instructions to follow up in our office in one week, pt has not schedule appt. Colonoscopy on August 01 --> Diffuse abnormal mucosa was found throughout the entire examined colon, mucosa was congested, edematous, erythematous, ulcerated, friable, and had deep and superficial ulcers. Pathology most consistent with ulcerative colitis. CT abdomen and pelvis W/O IV contrast (08/18) --> Mild circumferential wall thickening of the entire transverse colon and likely a portion of the distal ascending and proximal descending colon. No significant surrounding inflammation is present. However, given the history of Crohn disease, inflammatory bowel disease is a top consideration. No other acute finding is identified. Reports of chronic hematochezia and hematemesis, H/H stable at this time. (08/22) Hep B negative. TB pending. Plan remains the same for Remicade when TB comes back negative. Pt would like his diet advanced PLAN - TB test pending - Advance diet - Mesalamine - Solumedrol - Plan for DC after Remicade - Further recommendations based on clinical course Pt has been seen and examined by myself and Dr. Toussaint and this note is written on his behalf (Shae Case) Physician Comments Agree with above, on iv solumederol and ascaol. Remicaide once protocol completed. (Rigoberto Toussaint MD) Shae Case August 22, 2017 13:52 Rigoberto Toussaint MD August 22, 2017 14:57
--- NOTE | 2017-08-22 14:26 | HHI.PR ---
Objective Vitals Vital Signs Date Time Temp Pulse Resp B/P (MAP) Pulse Ox O2 Delivery O2 Flow Rate FiO2 08/22/17 08:52 20 08/22/17 08:00 97.6 65 16 144/87 (106) 99 08/22/17 00:00 97.8 76 20 142/80 (100) 98 08/21/17 20:00 97.1 80 22 148/104 (119) 99 08/21/17 16:00 97.4 68 18 142/82 (102) 98 Result Diagram: 08/20/17 0610 08/20/17 0610 Objective Remarks GENERAL: This is a thin, 21 year old male patient, in no apparent distress. CARDIOVASCULAR: Regular rate and rhythm RESPIRATORY: Clear to auscultation. Breath sounds equal bilaterally. GASTROINTESTINAL: Abdomen soft, non-tender, nondistended. Normal active bowel sounds MUSCULOSKELETAL: Extremities without clubbing, cyanosis, or edema. NEURO: Alert & Oriented x4 to person, place, time, situation. Moves all ext x4 A/P Problem List: (1) Colitis ICD Codes: K52.9 - Colitis Status: Acute Plan: - Pt is a 21 y/o WM with Ulcerative colitis who has had multiple recent hospital admissions and ER visit with complaint of abdominal pain, nausea/vomiting, weight loss, and diarrhea. - Pt recently had a colonoscopy on 08/01/17 --> Diffuse abnormal mucosa was found throughout the entire examined colon, mucosa was congested, edematous, erythematous, ulcerated, friable, and had deep and superficial ulcers. Pathology most consistent with ulcerative colitis. - Pt was recently admitted to [facility] [facility] from 08/09/17 to 08/11/17 with vomiting, bloody diarrhea and abdominal pain. He was admitted and hydrated with IV fluids. Placed on Solu-Medrol IV and maintained on his mesalamine. He had clinical improvement and was discharged on Mesalamine 1600mg TID and a Prednisone taper. - He presented back to the ED at [facility] on 08/18/17 with complaints of acute on chronic abdominal pain and bloody diarrhea. Patient also reports that he has been having dysuria with urinary urgency and frequency. - His H/H was stable. - CT abdomen and pelvis W/O IV contrast (08/18) --> Mild circumferential wall thickening of the entire transverse colon and likely a portion of the distal ascending and proximal descending colon. No significant surrounding inflammation is present. No other acute finding is identified. - He was seen by GI while in the ED and appt was made for him to followup outpt with Dr. Yeung on 08/19/17. The ER physician also prescribed Macrobid 100mg BID for possible UTI. Urine culture reviewed and was negative. - Pt was seen by Dr. Yeung yesterday and was sent to the ED as it was felt that he had failed treatment with Steroids and Mesalamine for his UC and was being recommended for Remicade. - Pt was started on Solu-Medrol 40mg Q12H and Asacol 1600mg TID at admission - Check stool for enteric path pending - stool for C. diff neg - GI consulted, appreciate input Protocol initiated for Remicade Per GI TB test (pending) hep panel non reactive Hep A, B and C continue steroids continue asacol clear liquids - IVF - Pain control PRN - Supportive care Luis Melendez DO August 22, 2017 14:26
[2017-08-22 16:00] VITALS: BP 127/75; PULSE 69; RESP 16; TEMP 98.1; O2SAT 98
[2017-08-22 20:00] VITALS: BP 148/83; PULSE 88; RESP 19; TEMP 97.8; O2SAT 99
[2017-08-23] VITALS: BP 131/69; PULSE 71; RESP 19; TEMP 98.1; O2SAT 97
[2017-08-23] MEDS: MORPHINE SULFATE 4 MG/ML INJ IV PRN ×4 (03:08→13:21)
[2017-08-23] MEDS: ACETAMINOPHEN/HYDROcodone 325 MG/5 MG TAB PO PRN ×3 (04:10→15:42)
[2017-08-23 08:00] VITALS: BP 149/89; PULSE 67; RESP 16; TEMP 97.5; O2SAT 100
[2017-08-23] MEDS: SODIUM CHLORIDE 0.9% FLUSH 10 ML FLUSH IV FLUSH SCH ×2 (08:38→20:51)
[2017-08-23] MEDS: MESALAMINE HD 800 MG DELAYED RELEASE TAB PO SCH ×3 (08:39→17:31)
[2017-08-23] MEDS: methylPREDNISolone SOD SUCC 40 MG/1 ML VIAL IV PUSH SCH ×2 (08:40→19:43)
[2017-08-23 12:00] VITALS: BP 138/81; PULSE 83; RESP 16; TEMP 98; O2SAT 98
[2017-08-23 16:00] VITALS: BP 139/82; PULSE 72; RESP 17; TEMP 98.1; O2SAT 99
[2017-08-23 16:39] LABS: MITOGEN MINUS NIL RESULT 4.63 IU/mL; NIL RESULT 0.02 IU/mL; QUANTIFERON TB GOLD + RESULT Negative (Negative)
--- NOTE | 2017-08-23 17:05 | HHI.GIFU ---
Subjective Remarks Patient is resting in the bed watching TV Mild anxiety but does admit that he is feeling better States 3-4 loose yellowish-brown stools today Abdominal pain still diffuse, but no obvious bleeding She is able to eat small amounts of food now, (Lacy Cleaning) Objective Vitals I&O Vital Signs Date Time Temp Pulse Resp B/P (MAP) Pulse Ox O2 Delivery O2 Flow Rate FiO2 08/23/17 16:00 98.1 72 17 139/82 (101) 99 08/23/17 12:00 98.0 83 16 138/81 (100) 98 08/23/17 08:00 97.5 67 16 149/89 (109) 100 08/23/17 00:00 98.1 71 19 131/69 (89) 97 08/22/17 20:00 97.8 88 19 148/83 (104) 99 I/O 08/22/17 08/22/17 08/22/17 08/23/17 08/23/17 08/23/17 07:00 15:00 23:00 07:00 15:00 23:00 Intake Total 750 ml 720 ml 1500 ml Balance 750 ml 720 ml 1500 ml Intake Oral 750 ml 720 ml 1500 ml # Voids 6 3 6 # Bowel Movements 6 1 2 Laboratory Date/Time Source Procedure Growth Status 08/20/17 11:00 Stool Stool - Final NO ENTERIC PATHOGENS DETECTED BY PCR... Complete Physical Exam HEENT: Normocephalic; atraumatic; no jaundice. Thin CHEST: Even/unlabored, no shortness of breath CARDIAC: Regular rate and rhythm ABDOMEN: Flat soft, nondistended, diffuse tenderness ,bowel sounds active /soft EXTREMITIES: No edema. SKIN: Normal; no rash; no jaundice., Pale PATROL LADY: Answering simple questions appropriately, no facial grimace (Lacy Cleaning) Assessment and Plan Plan ASSESSMENT - Ulcerative colitis- multiple recent admissions for complaints of abdominal pain, nausea, vomiting, diarrhea- last seen by our service at [facility] last week. Advised to continue Mesalamine and restarted on Prednisone taper with instructions to follow up in our office in one week, pt has not schedule appt. Colonoscopy on August 01 --> Diffuse abnormal mucosa was found throughout the entire examined colon, mucosa was congested, edematous, erythematous, ulcerated, friable, and had deep and superficial ulcers. Pathology most consistent with ulcerative colitis. CT abdomen and pelvis W/O IV contrast (08/18) --> Mild circumferential wall thickening of the entire transverse colon and likely a portion of the distal ascending and proximal descending colon. No significant surrounding inflammation is present. However, given the history of Crohn disease, inflammatory bowel disease is a top consideration. No other acute finding is identified. Reports of chronic hematochezia and hematemesis, H/H stable at this time. (08/22) Hep B negative. TB pending. Plan remains the same for Remicade when TB comes back negative. Pt would like his diet advanced 08/23/2017, patient is tolerating food, regular diet. Patient still complains of diffuse abdominal pain but does admit that it is much better now and he is able to eat. Notes 3-4 yellowish-brown BMs today still loose, no obvious blood. Hepatitis panel nonreactive, TB Gold test negative, QFT 0.02,Mitogen 4.63, antigen 0, NIL -0.01. Patient will need Remicade. Probable Saturday. PLAN Diet regular Mesalamine Solumedrol Plan for DC after Remicade and follow in the GI office Supportive care Monitor labs as needed Pt has been seen and examined by myself and Dr. Toussaint and this note is written on his behalf (Lacy Cleaning) Physician Comments Seen and examined with JO, no bleeding, pain improving with iv steroids. TB results p. (Rigoberto Toussaint MD) Lacy Cleaning August 23, 2017 17:05 Rigoberto Toussaint MD August 24, 2017 15:37
--- NOTE | 2017-08-23 18:00 | HHI.PR ---
Subjective Remarks Patient able to tolerate reg diet but still requiring IV pain medication 4 liquid brown BMs today no blood present Objective Vitals Vital Signs Date Time Temp Pulse Resp B/P (MAP) Pulse Ox O2 Delivery O2 Flow Rate FiO2 08/23/17 16:00 98.1 72 17 139/82 (101) 99 08/23/17 12:00 98.0 83 16 138/81 (100) 98 08/23/17 08:00 97.5 67 16 149/89 (109) 100 08/23/17 00:00 98.1 71 19 131/69 (89) 97 08/22/17 20:00 97.8 88 19 148/83 (104) 99 Result Diagram: 08/20/17 0610 08/20/17 0610 Other Results Laboratory Tests Test 08/21/17 06:51 Hepatitis A IgM Antibody NONREACTIVE Hepatitis B Surface Antigen NONREACTIVE Hepatitis B Core IgM Antibody NONREACTIVE Hepatitis C IgG Antibody NONREACTIVE TB Test (QFT) Gold In Tube Negative TB Test (QFT) Nil 0.02 IU/mL TB Test (QFT) Mitogen Minus Nil 4.63 IU/mL TB Test (QFT) Antigen Minus Nil 0.00 IU/mL TB Test (QFT) TB - Nil -0.01 IU/mL Objective Remarks GENERAL: This is a thin, 21 year old male patient, in no apparent distress. CARDIOVASCULAR: Regular rate and rhythm RESPIRATORY: Clear to auscultation. Breath sounds equal bilaterally. GASTROINTESTINAL: Abdomen soft, mild nontender, nondistended. Normal active bowel sounds MUSCULOSKELETAL: Extremities without clubbing, cyanosis, or edema. NEURO: Alert & Oriented x4 to person, place, time, situation. Moves all ext x4 A/P Problem List: (1) Colitis ICD Codes: K52.9 - Colitis Status: Acute Plan: - Pt is a 21 y/o WM with Ulcerative colitis who has had multiple recent hospital admissions and ER visit with complaint of abdominal pain, nausea/vomiting, weight loss, and diarrhea. - Pt recently had a colonoscopy on 08/01/17 --> Diffuse abnormal mucosa was found throughout the entire examined colon, mucosa was congested, edematous, erythematous, ulcerated, friable, and had deep and superficial ulcers. Pathology most consistent with ulcerative colitis. - Pt was recently admitted to [facility] from 08/09/17 to 08/11/17 with vomiting, bloody diarrhea and abdominal pain. He was admitted and hydrated with IV fluids. Placed on Solu-Medrol IV and maintained on his mesalamine. He had clinical improvement and was discharged on Mesalamine 1600mg TID and a Prednisone taper. - He presented back to the ED at [facility] on 08/18/17 with complaints of acute on chronic abdominal pain and bloody diarrhea. Patient also reports that he has been having dysuria with urinary urgency and frequency. - His H/H was stable. - CT abdomen and pelvis W/O IV contrast (08/18) --> Mild circumferential wall thickening of the entire transverse colon and likely a portion of the distal ascending and proximal descending colon. No significant surrounding inflammation is present. No other acute finding is identified. - He was seen by GI while in the ED and appt was made for him to followup outpt with Dr. Yeung on 08/19/17. The ER physician also prescribed Macrobid 100mg BID for possible UTI. Urine culture reviewed and was negative. - Pt was seen by Dr. Yeung yesterday and was sent to the ED as it was felt that he had failed treatment with Steroids and Mesalamine for his UC and was being recommended for Remicade. - Pt was started on Solu-Medrol 40mg Q12H and Asacol 1600mg TID at admission - Check stool for enteric path pending - stool for C. diff neg - GI consulted, appreciate input Protocol initiated for Remicade Per GI TB test (pending) hep panel non reactive Hep A, B and C continue steroids continue asacol reg diet - IVF DC'd - Pain control PRN. Patient still receiving IV morphine for pain. DC IV Morphine patient may use [place] 5/325 to 10/325 as needed for pain - Supportive care Heidi Clifton August 23, 2017 18:00
[2017-08-23] MEDS: ACETAMINOPHEN/HYDROcodone 325 MG/10 MG TAB PO PRN ×2 (19:43→23:29)
[2017-08-23 20:00] VITALS: BP 150/88; PULSE 78; RESP 18; TEMP 98.1; O2SAT 99
[2017-08-24 00:01] VITALS: BP 135/55; PULSE 80; RESP 18; TEMP 98.2; O2SAT 98
[2017-08-24] MEDS: TEMAZEPAM 15 MG CAP PO PRN (02:02)
[2017-08-24] MEDS: ACETAMINOPHEN/HYDROcodone 325 MG/10 MG TAB PO PRN ×3 (03:34→12:45)
[2017-08-24 08:00] VITALS: BP 137/93; PULSE 104; RESP 18; TEMP 97.5; O2SAT 99
[2017-08-24] MEDS: MESALAMINE HD 800 MG DELAYED RELEASE TAB PO SCH ×2 (08:24→12:45)
[2017-08-24] MEDS: SODIUM CHLORIDE 0.9% FLUSH 10 ML FLUSH IV FLUSH SCH (08:25)
[2017-08-24] MEDS: methylPREDNISolone SOD SUCC 40 MG/1 ML VIAL IV PUSH SCH (08:25)
[2017-08-24 12:00] VITALS: BP 140/84; PULSE 73; RESP 18; TEMP 97.6; O2SAT 99
--- NOTE | 2017-08-24 13:31 | HHI.GIFU ---
Subjective Remarks Awake, laying across the bed watching TV Showing gradual improvement Still has some generalized abdominal pain and loose stools No fever (Lacy Cleaning) Objective Vitals I&O Vital Signs Date Time Temp Pulse Resp B/P (MAP) Pulse Ox O2 Delivery O2 Flow Rate FiO2 08/24/17 12:00 97.6 73 18 140/84 (102) 99 08/24/17 08:00 97.5 104 18 137/93 (108) 99 08/24/17 00:01 98.2 80 18 135/55 (81) 98 08/23/17 20:00 98.1 78 18 150/88 (108) 99 08/23/17 16:00 98.1 72 17 139/82 (101) 99 I/O 08/23/17 08/23/17 08/23/17 08/24/17 08/24/17 08/24/17 07:00 15:00 23:00 07:00 15:00 23:00 Intake Total 1500 ml 1440 ml 1000 ml Balance 1500 ml 1440 ml 1000 ml Intake Oral 1500 ml 1440 ml 1000 ml # Voids 6 4 3 # Bowel Movements 2 3 1 Laboratory Date/Time Source Procedure Growth Status 08/20/17 11:00 Stool Stool - Final NO ENTERIC PATHOGENS DETECTED BY PCR... Complete Physical Exam HEENT: Normocephalic; atraumatic; no jaundice. CHEST: Even/unlabored, no shortness of breath CARDIAC: Regular rate and rhythm S1-S2 ABDOMEN: Thin, flat soft, nondistended, diffuse tenderness but less intense today,bowel sounds active, tolerating regular diet EXTREMITIES: No edema. SKIN: Normal; no rash; no jaundice., FINANCIAL SALES CONSULTANT: Answering simple questions, mild anxiety (Lacy Cleaning) Assessment and Plan Plan ASSESSMENT - Ulcerative colitis- multiple recent admissions for complaints of abdominal pain, nausea, vomiting, diarrhea- last seen by our service at [facility] last week. Advised to continue Mesalamine and restarted on Prednisone taper with instructions to follow up in our office in one week, pt has not schedule appt. Colonoscopy on August 01 --> Diffuse abnormal mucosa was found throughout the entire examined colon, mucosa was congested, edematous, erythematous, ulcerated, friable, and had deep and superficial ulcers. Pathology most consistent with ulcerative colitis. CT abdomen and pelvis W/O IV contrast (08/18) --> Mild circumferential wall thickening of the entire transverse colon and likely a portion of the distal ascending and proximal descending colon. No significant surrounding inflammation is present. However, given the history of Crohn disease, inflammatory bowel disease is a top consideration. No other acute finding is identified. Reports of chronic hematochezia and hematemesis, H/H stable at this time. (08/22) Hep B negative. TB pending. Plan remains the same for Remicade when TB comes back negative. Pt would like his diet advanced 08/23/2017, patient is tolerating food, regular diet. Patient still complains of diffuse abdominal pain but does admit that it is much better now and he is able to eat. Notes 3-4 yellowish-brown BMs today still loose, no obvious blood. Hepatitis panel nonreactive, TB Gold test negative, QFT 0.02,Mitogen 4.63, antigen 0, NIL -0.01. Patient will need Remicade. Probable Saturday. 08/24/2017, continues to tolerate his regular diet, and showing gradual improvement, decreased amount of stools less watery, TB Gold test negative as above, working on possible Remicade dose today. Spoke with "TRAM" in the pharmacy. Medication is not available today and will need approval per medical pharmacy service associate who will be here Saturday. PLAN Remicade Saturday as long as it is approved by pharmacy service associate. Unable to get dosing done today, needs pharmacy service associate approval, in order of medicine to pharmacy. Diet regular as tolerated Mesalamine Solumedrol Supportive care, patient is anxious over hospital stay and discharge. Pt has been seen and examined by myself and Dr. Toussaint and this note is written on his behalf (Lacy Cleaning) Physician Comments Cleared for remicaide. Possible first dose next week. Diet as tolerated. IV solumederol. (Rigoberto Toussaint MD) Lacy Cleaning August 24, 2017 13:31 Rigoberto Toussaint MD August 24, 2017 15:50
--- NOTE | 2017-08-24 14:11 | HHI.PR ---
Objective Vitals Vital Signs Date Time Temp Pulse Resp B/P (MAP) Pulse Ox O2 Delivery O2 Flow Rate FiO2 08/24/17 12:00 97.6 73 18 140/84 (102) 99 08/24/17 08:00 97.5 104 18 137/93 (108) 99 08/24/17 00:01 98.2 80 18 135/55 (81) 98 08/23/17 20:00 98.1 78 18 150/88 (108) 99 08/23/17 16:00 98.1 72 17 139/82 (101) 99 Result Diagram: 08/20/17 0610 08/20/17 0610 Objective Remarks GENERAL: This is a thin, 21 year old male patient, in no apparent distress. CARDIOVASCULAR: Regular rate and rhythm RESPIRATORY: Clear to auscultation. Breath sounds equal bilaterally. GASTROINTESTINAL: Abdomen soft, mild nontender, nondistended. Normal active bowel sounds MUSCULOSKELETAL: Extremities without clubbing, cyanosis, or edema. NEURO: Alert & Oriented x4 to person, place, time, situation. Moves all ext x4 A/P Problem List: (1) Colitis ICD Codes: K52.9 - Colitis Status: Acute Plan: - Pt is a 21 y/o WM with Ulcerative colitis who has had multiple recent hospital admissions and ER visit with complaint of abdominal pain, nausea/vomiting, weight loss, and diarrhea. - Pt recently had a colonoscopy on 08/01/17 --> Diffuse abnormal mucosa was found throughout the entire examined colon, mucosa was congested, edematous, erythematous, ulcerated, friable, and had deep and superficial ulcers. Pathology most consistent with ulcerative colitis. - Pt was recently admitted to [facility] from 08/09/17 to 08/11/17 with vomiting, bloody diarrhea and abdominal pain. He was admitted and hydrated with IV fluids. Placed on Solu-Medrol IV and maintained on his mesalamine. He had clinical improvement and was discharged on Mesalamine 1600mg TID and a Prednisone taper. - He presented back to the ED at [facility] on 08/18/17 with complaints of acute on chronic abdominal pain and bloody diarrhea. Patient also reports that he has been having dysuria with urinary urgency and frequency. - His H/H was stable. - CT abdomen and pelvis W/O IV contrast (08/18) --> Mild circumferential wall thickening of the entire transverse colon and likely a portion of the distal ascending and proximal descending colon. No significant surrounding inflammation is present. No other acute finding is identified. - He was seen by GI while in the ED and appt was made for him to followup outpt with Dr. Yeung on 08/19/17. The ER physician also prescribed Macrobid 100mg BID for possible UTI. Urine culture reviewed and was negative. - Pt was seen by Dr. Yeung yesterday and was sent to the ED as it was felt that he had failed treatment with Steroids and Mesalamine for his UC and was being recommended for Remicade. - Pt was started on Solu-Medrol 40mg Q12H and Asacol 1600mg TID at admission - Check stool for enteric path pending - stool for C. diff neg - TB QFT negative - GI consulted, appreciate input Protocol initiated for Remicade Per GI Unable to give Remicade till Saturday. Remicade requires pharmacy general manager approval and that is not available till Saturday - Would like for patient to receive first dose of Remicade prior to DC as he has had several readmissions and would like to avoid another readmission or complications - IVF DC'd - Pain control PRN. Patient still receiving IV morphine for pain. DC IV Morphine patient may use [place] 5/325 to 10/325 as needed for pain - Supportive care Heidi Clifton August 24, 2017 14:11
[2017-08-24] MEDS ORDERED: HYDR-3288 PO (15:24)
[2017-08-24] MEDS ORDERED: PROT40TA PO (15:24)
[2017-08-24] MEDS ORDERED: PRED10 PO (15:24)
--- NOTE | 2017-08-24 15:28 | HHI.DCPOC ---
Discharge Care Plan Diagnosis: (1) Colitis Goals to Promote Your Health * To prevent worsening of your condition and complications * To maintain your health at the optimal level Directions to Meet Your Goals Take your medications as prescribed Follow your dietary instruction Follow activity as directed Keep your appointments as scheduled Take your immunizations and boosters as scheduled If your symptoms worsen call your PCP, if no PCP go to Urgent Care Center or Emergency Room Smoking is Dangerous to Your Health. Avoid second hand smoke Call the 24-hour hour crisis hotline for domestic abuse at take medications as instructed f/u with Gastroenterology, Dr. Toussaint in 2-3 days. Luis Melendez DO August 24, 2017 15:28
--- NOTE | 2017-08-24 16:00 | HHI.DS ---
Discharge Summary Admission Date August 19, 2017 at 21:37 Discharge Date: August 24, 2017 Admitting Diagnosis colitis refractory to steroids; dehydration (1) Colitis ICD Codes: K52.9 - Colitis Status: Acute Consultants Dr. Toussaint, GI Procedures None Brief History 21-year-old male with fairly recent diagnosis of Crohn's colitis approximately 8 months ago, presents emergency department at the instruction of GI specialist Dr. Yeung. Patient was seen and evaluated yesterday here in the emergency department for acute on chronic abdominal pain, nausea, diarrhea, dehydration. Patient was discharged to follow-up with GI today. He did this. He has been on antibiotics and steroids and taking these as prescribed with only worsening in his symptoms. He is sent here for IV Remicade for colitis refractory to steroids. Patient reports continued abdominal pain mostly in the lower abdomen , worse in the left lower quadrant., diarrhea with justin red blood. States that he feels weak and tired. Denies any fever chills. He has no other symptoms to report. Patient has had frequent admits and ER visits and has failed use of steroids and antibiotics and GI wants to start remacaide. [facility] CBC/BMP: 08/20/17 0610 08/20/17 0610 PE at Discharge GENERAL: This is a thin, 21 year old male patient, in no apparent distress. CARDIOVASCULAR: Regular rate and rhythm RESPIRATORY: Clear to auscultation. Breath sounds equal bilaterally. GASTROINTESTINAL: Abdomen soft, nontender, nondistended. Normal active bowel sounds MUSCULOSKELETAL: Extremities without clubbing, cyanosis, or edema. NEURO: Alert & Oriented x4 to person, place, time, situation. Moves all ext x4 Hospital Course Colitis - Pt is a 21 y/o WM with Ulcerative colitis who has had multiple recent hospital admissions and ER visit with complaint of abdominal pain, nausea/vomiting, weight loss, and diarrhea. - Pt recently had a colonoscopy on 08/01/17 --> Diffuse abnormal mucosa was found throughout the entire examined colon, mucosa was congested, edematous, erythematous, ulcerated, friable, and had deep and superficial ulcers. Pathology most consistent with ulcerative colitis. - Pt was recently admitted to [facility] [place] 08/09/17 to 08/11/17 with vomiting, bloody diarrhea and abdominal pain. He was admitted and hydrated with IV fluids. Placed on Solu-Medrol IV and maintained on his mesalamine. He had clinical improvement and was discharged on Mesalamine 1600mg TID and a Prednisone taper. - He presented back to the ED at [facility] on 08/18/17 with complaints of acute on chronic abdominal pain and bloody diarrhea. Patient also reports that he has been having dysuria with urinary urgency and frequency. - His H/H was stable. - CT abdomen and pelvis W/O IV contrast (08/18) --> Mild circumferential wall thickening of the entire transverse colon and likely a portion of the distal ascending and proximal descending colon. No significant surrounding inflammation is present. No other acute finding is identified. - He was seen by GI while in the ED and appt was made for him to followup outpt with Dr. Yeung on 08/19/17. The ER physician also prescribed Macrobid 100mg BID for possible UTI. Urine culture reviewed and was negative. - Pt was seen by Dr. Yeung yesterday and was sent to the ED as it was felt that he had failed treatment with Steroids and Mesalamine for his UC and was being recommended for Remicade. - Pt was started on Solu-Medrol 40mg Q12H and Asacol 1600mg TID at admission - Check stool for enteric path pending - stool for C. diff neg - TB QFT negative - GI consulted, appreciate input Protocol initiated for Remicade Per GI Unable to give Remicade till Saturday. Remicade requires retail pharmacy manager approval and that is not available till Saturday - Would like for patient to receive first dose of Remicade prior to DC as he has had several readmissions and would like to avoid another readmission or complications - IVF DC'd - Pain control PRN. Patient still receiving IV morphine for pain. DC IV Morphine patient may use [place] 5/325 to 10/325 as needed for pain - Supportive care - Patient able to tolerate PO intake stool are more firm today and no longer bloody. Patient adamantly asking to go home. Discussed with patient the risks of going home too early. Unable to give Remicade till Saturday. Remicade requires retail pharmacy manager approval and that is not available till Saturday. Would like for patient to receive first dose of Remicade prior to DC as he has had several readmissions and would like to avoid another readmission or complications. Patient states he understands but continues to insist on going home. Patient agrees to follow up with PCP and GI after DC. Pt Condition on Discharge: Stable Discharge Disposition: Discharge Home Discharge Instructions DIET: Follow Instructions for: As Tolerated, No Restrictions Activities you can perform: Regular-No Restrictions Follow up Referrals: Gastroenterology - 3-5 Days with Rigoberto Toussaint MD PCP Follow-up - [address] Ciara Valadez New Medications: Hydrocodone-Acetaminophen ([place]) 7.5-325 mg Tab 1 TAB PO Q6H PRN for PAIN, #15 TAB 0 Refills Pantoprazole (Protonix) 40 Mg Tab 40 MG PO DAILY for Reflux, #30 TAB 0 Refills Prednisone (Prednisone) 10 Mg Tab 30 MG PO BID for Colitis for 14 Days, #84 TAB 0 Refills Continued Medications: Mesalamine (Asacol HD) 800 Mg Tab 1600 MG PO TID for Ulcerative colitis for 30 Days, #180 TAB 0 Refills Swallow whole. Take on an empty stomach. Discontinued Medications: Nitrofurantoin Monohydrate Macrocrystals (Macrobid) 100 Mg Capsule 100 MG PO BID for Infection for 10 Days, #20 CAP 0 Refills Prednisone (Prednisone) 10 Mg Tab 10 MG PO DAILY for Crohns for 40 Days, #100 TAB 0 Refills 4 pills daily for 10 days then 3 pills for 10 days then 2 pills for 10 days then 1 pill for 10 days Tramadol (Tramadol) 50 Mg Tab 100 MG PO Q6H PRN for PAIN for 7 Days, #56 TAB 0 Refills Heidi Clifton August 24, 2017 16:00
== END 2017-08-24 17:25 | disposition home or self-care (01) | DRG 387 ==
LOC: NEPC 18:44 → NEDA 21:37 → N06A 23:32
PROVIDERS: ADMIT Hospitalist; ATTEND Hospitalist
DX: K51.90 Ulcerative colitis, unspecified, without complications (principal); E86.0 Dehydration; R00.0 Tachycardia, unspecified; R63.4 Abnormal weight loss; R35.0 Frequency of micturition; R39.15 Urgency of urination; R30.0 Dysuria; F41.9 Anxiety disorder, unspecified; F17.210 Nicotine dependence, cigarettes, uncomplicated; Z79.52 Long term (current) use of systemic steroids
CPT/HCPCS: 80053; 80074; 85025; 86480; 87493; 87506; 96361; 96374; 96375; J2270; J2405; J2920; J7030